=== PATIENT | male | born 1985 ===

== ENCOUNTER 2017-09-18 19:30 | Inpatient (IN) | payer MEDICAID ==
--- NOTE | 2017-09-18 19:58 | ED PDOC ---
HPI:STROKE - Time Time: 19:20 - Historian Historian: Patient - Chief Complaint Chief Complaint: Weakness (right sided) - Onset Date: 09/18/17 Time: 05:00 Onset: This morning - Timing Timing: Currently Symptomatic - Associated Symptoms Associated symptoms:: Headache, Nausea (mild) - Notes: Notes:: Gordy Parker is a 32 year old male, with a past medical history HTN and DVT, who presents to the emergency department complaining of right sided weakness onset at 5:00am today. Patient reports when he woke up at 5am today he had trouble walking and noticed he was weak. He decided not to go to work and stay all day in bed, but the last 2 to 3 hours prior to arrival he began feeling even worst with a headache which prompted ED visit. He did not take any medications for pain or symptoms. Patient has a history of DVT in left leg x2 years ago after knee surgery for an accident, however he stopped taking anticoagulants after x6 months because he was told he didn't have to take them anymore. He denies any other medical complaints. PMD: None provided. NIHSS Stroke Scale - Date/Time Evaluation Performed Date Performed: 09/18/17 Time Performed: 17:50 When Was NIHSS Performed: Baseline - How Severe is the Stroke Level of Consciousness: 0=Alert LOC to Questions: 0=Both comments correct LOC to commands: 0=Obeys both correctly Best Gaze: 0=Normal Visual: 0=No visual loss Facial: 2=Partial (lower face paralysis) Motor Arm - Left: 0=No drift Motor Arm - Right: 1=Drift noted before 10 sec Motor Leg - Left: 0=No drift Motor Leg - Right: 3=No effort against gravity (falls immediately) Limb Ataxia: 0=Absent Sensory: 0=Normal Best Language: 1=Mild to moderate aphasia Dysarthia: 1=Mild to moderate slurring Extinction & Inattention (Neglect): 0=Normal, no object Score: 8 rTPA Inclusion/Exclusion - Refusal of Treatment Patient Refused Treatment: No - Inclusion Criteria for Altepase Patient is 18 years or Older: Yes The Clinical Diagnosis of Ischemic Stroke That is Causing a Potentially Disabling Neurological Deficit: Yes Time of Onset is Well Established to be Less Than 270 Minute Before Treatment Would Begin: No Risk/Benefit Discussed With Patient/Family Member Present: Yes - Exclusion Criteria for Altepase Uncontrolled Hypertension at Time of Treatment (Systolic BP above 185 or Diastolic BP above 110 mmHg): No Past Medical History Reviewed: Historical Data, Nursing Documentation, Vital Signs Vital Signs: Last Vital Signs Temp 98.2 F 09/18/17 19:41 Pulse 63 09/18/17 19:41 Resp 18 09/18/17 19:41 BP 191/116 H 09/18/17 19:41 Pulse Ox 98 09/18/17 19:41 - Medical History PMH: Deep Vein Thrombosis (left leg), HTN - Surgical History Other surgeries: knee surgery after accident - Family History Family History: States: Hypertension - Social History Current smoker - smoking cessation education provided: Yes Alcohol: Occasional Drugs: Denies - Allergies Allergies/Adverse Reactions: Allergies Allergy/AdvReac Type Severity Reaction Status Date / Time No Known Allergies Allergy Verified 09/18/17 19:55 Review of Systems ROS Statement: Except As Marked, All Systems Reviewed And Found Negative Gastrointestinal: Positive for: Nausea (mild). Negative for: Vomiting Neurological: Positive for: Weakness (right sided), Headache Physical Exam - Reviewed Nursing Documentation Reviewed: Yes Vital Signs Reviewed: Yes - Physical Exam Appears: Positive for: Uncomfortable, In Acute Distress Head Exam: Positive for: ATRAUMATIC, NORMOCEPHALIC Skin: Positive for: Warm, Dry Eye Exam: Positive for: EOMI, PERRL ENT: Negative for: Pharyngeal Erythema, Tonsillar Exudate Neck: Positive for: Painless ROM, Supple Cardiovascular/Chest: Positive for: Regular Rate, Rhythm. Negative for: Murmur Respiratory: Positive for: Normal Breath Sounds. Negative for: Wheezing Gastrointestinal/Abdominal: Positive for: Soft. Negative for: Tenderness Back: Positive for: Normal Inspection Extremity: Negative for: Pedal Edema, Deformity Lymphatic: Negative for: Adenopathy Neurologic/Psych: Positive for: Alert, Oriented (x3), Motor/Sensory Deficits ( see NIHSS), Aphasia (mild), Facial Droop (right), Other (Right arm and right leg weakness) - Laboratory Results Result Diagrams: 09/18/17 20:30 09/18/17 20:30 - ECG ECG: Positive for: Interpreted By Co ECG Rhythm: Positive for: Normal QRS, Normal ST Segment, Sinus Bradycardia O2 Sat by Pulse Oximetry: 98 (RA) Pulse Ox Interpretation: Normal - Radiology X-Ray: Interpreted by Me X-Ray Interpretation: No Acute Disease - Progress Re-evaluation Time: 21:00 Condition: Unchanged - Critical Care Total Time (In Min): 30 Documented Critical Care: Time excludes all time spent performint seperately billable procedures Medical Decision Making Medical Decision Making: Initial Impression: Stroke Initial Plan: --Type and screen --CTA Head/Neck Code stroke [CT] --Head w/o (Code Stroke) [CT] --EKG --CMP --Hemoglobin A1C --Lipid Panel --Troponin I --Stroke team consult --CBC w/ differential --PTT --PT --Chest portable [RAD] --Sodium Chloride 1,000 ml IV 100 mls/hr --Reevaluation -On arrival stroke alert activated and orders placed per protocol. Called place to Dr. Campbell neuro director of conservation. If CT negative, to give ASA and plavix and start IV hydration 20:[address] FINDINGS: Brain: No acute brain parenchymal abnormality. No intracranial hemorrhage. No intracranial mass or edema. Ventricles: No hydrocephalus. Bones/joints: No calvarial fracture. Soft tissues: Unremarkable. Sinuses: There is near complete opacification of the left maxillary antrum felt to be due to chronic sinusitis. No fluid in the paranasal sinuses. Mastoid air cells: The visualized mastoid air cells are aerated. IMPRESSION: No acute intracranial abnormality. EXAM: CT Angiography Head With Intravenous Contrast CLINICAL HISTORY: The patient age is 32 years old and is male; Signs and symptoms; Other: Rt side numbness; Additional info: Stroke alert Facility exam id and description: [id number] cta head/neck code stroke TECHNIQUE: Axial computed tomographic angiography images of the head with intravenous contrast using CT angiography protocol. All CT scans at this facility use one or more dose reduction techniques, viz.: automated exposure control; ma/kV adjustment per patient size (including targeted exams where dose is matched to indication; i.e. head); or iterative reconstruction technique. MIP reconstructed images were created and reviewed. Coronal and sagittal reformatted images were created and reviewed. CONTRAST: 90 mL of [id number] administered intravenously. COMPARISON: CT - HEAD W/O (CODE STROKE) 2017-09-18 19:57 FINDINGS: Right internal carotid artery: No acute findings. Intracranial segment is patent with no significant stenosis. No aneurysm. Right anterior cerebral artery: No occlusion or significant stenosis. No aneurysm. Right middle cerebral artery: No occlusion or significant stenosis. No aneurysm. Right posterior cerebral artery: No occlusion or significant stenosis. No aneurysm. Right vertebral artery: The basilar and distal vertebral arteries are small in caliber, without occlusion. Left internal carotid artery: No acute findings. Intracranial segment is patent with no significant stenosis. No aneurysm. Left anterior cerebral artery: No occlusion or significant stenosis. No aneurysm. Left middle cerebral artery: No occlusion or significant stenosis. No aneurysm. Left posterior cerebral artery: No occlusion or significant stenosis. No aneurysm. Left vertebral artery: See above. Basilar artery: See above. IMPRESSION: 1. There is no significant arterial stenosis or occlusion involving the anterior circulation of the brain. 2. The basilar and distal vertebral arteries are small in caliber, without occlusion. EXAM: CT Angiography Neck With Intravenous Contrast EXAM DATE/TIME: 09/18/2017 7:55 PM CLINICAL HISTORY: The patient age is 32 years old and is male; Signs and symptoms; Other: Rt side numbness; Additional info: Stroke alert Facility exam id and description: [email or web address] cta head/neck code stroke TECHNIQUE: Axial computed tomographic angiography images of the neck with intravenous contrast using CT angiography protocol. All CT scans at this facility use one or more dose reduction techniques, viz.: automated exposure control; ma/kV adjustment per patient size (including targeted exams where dose is matched to indication; i.e. head); or iterative reconstruction technique. MIP reconstructed images were created and reviewed. Coronal and sagittal reformatted images were created and reviewed. CONTRAST: 90 mL of [id number] administered intravenously. COMPARISON: CT - HEAD W/O (CODE STROKE) 2017-09-18 19:57 FINDINGS: VASCULATURE: Right common carotid artery: No significant stenosis. No dissection or occlusion. Right internal carotid artery: Extracranial segment is patent with no significant stenosis. No dissection or occlusion. Right external carotid artery: No occlusion. Right vertebral artery: No occlusion or significant stenosis. Left common carotid artery: No significant stenosis. No dissection or occlusion. Left internal carotid artery: Extracranial segment is patent with no significant stenosis. No dissection or occlusion. Left external carotid artery: No occlusion. Left vertebral artery: There is mild dominance of the left vertebral artery. There is no significant stenosis or occlusion of the left vertebral artery. NECK: Bones/joints: There is mild reversal of the lordotic curvature of the cervical spine. Soft tissues: No mass. Sinuses: There is opacification of the left maxillary sinus, with mucosal mucosal thickening of a left ethmoid air cell. Artifact limits evaluation of the left maxillary sinus. Lung apices: Patchy nonspecific groundglass density is visualized within the lungs bilaterally. CAROTID STENOSIS REFERENCE USING NASCET CRITERIA: % ICA stenosis = (1 - narrowest ICA diameter/diameter of distal cervical ICA) x 100. Mild - <50% stenosis. Moderate - 50-69% stenosis. Severe - 70-94% stenosis. Near occlusion - 95-99% stenosis. Occluded - 100% stenosis. IMPRESSION: 1. There is no significant stenosis or occlusion of the extracranial carotid arteries bilaterally. 2. There is mild dominance of the left vertebral artery. 3. Additional CT findings described above. Thank you for allowing us to participate in the care of your patient. Dictated and Authenticated by: Pranay Hernadez MD 09/18/2017 9:16 PM Eastern Time ([place] & [place]) JHONATHAN Campbell findings DW pt and family findings and plan of care Pt needs to be hospitalized for CVA JHONATHAN Bhakta Med Service Scribe Attestation: Documented by Gene Bazan, acting as a scribe for Denise Koo MD Provider Scribe Attestation: All medical record entries made by the Scribe were at my direction and personally dictated by me. I have reviewed the chart and agree that the record accurately reflects my personal performance of the history, physical exam, medical decision making, and the department course for this patient. I have also personally directed, reviewed, and agree with the discharge instructions and disposition. Disposition - Clinical Impression Clinical Impression: Weakness of one side of body - Disposition Disposition Time: 21:00 Condition: GUARDED - Pt Status Changed To: Hospital Disposition Of: Inpatient - Admit Certification Admit to Inpatient:: After my assessment, the patient will require hospitalization for at least two midnights. This is because of the severity of symptoms shown, intensity of services needed, and/or the medical risk in this patient being treated as an outpatient. - POA Present On Arrival: Falls Or Trauma (risk)
[2017-09-18] MEDS ORDERED: Iodixanol 320 MG/ML 100 ML BOTTLE IV ONE (20:05)
[2017-09-18 20:40] LABS: BASO # 0.1 K/uL (0.0-0.2); BASO % 1.1 % (0.0-2.0); EOS # 0.1 K/uL (0.0-0.7); EOS % 1.6 % (0.0-4.0); HEMOGLOBIN 13.4 g/dL (12.0-18.0); LYMPH # 2.4 K/uL (1.0-4.3); LYMPH % 33.3 % (20.0-40.0); MEAN CELL VOLUME 90.2 fl (80.0-94.0); MEAN CORPUSCULAR HEMOGLOBIN 30.7 pg (27.0-31.0); MEAN CORPUSCULAR HGB CONC 34.1 g/dL (33.0-37.0); MEAN PLATELET VOLUME 7.8 fl (7.2-11.7); MONO # 0.6 K/uL (0.0-0.8); MONO % 7.9 % (0.0-10.0); NEUT % 56.1 % (50.0-75.0); NRBC % 0.1 % (0.0-0.0); RBC 4.37 Mil/uL (4.40-5.90); RED CELL DISTRIBUTION WIDTH 13.5 % (11.5-14.5); WHITE BLOOD COUNT 7.1 K/uL (4.8-10.8)
[2017-09-18 20:47] LABS: ALB/GLOB RATIO 1.2 (1.0-2.1); ALBUMIN 3.8 g/dL (3.5-5.0); ALT/SGPT 42 U/L (21-72); AST/SGOT 29 U/L (17-59); BLOOD UREA NITROGEN 14 mg/dl (9-20); CALCIUM 9.2 mg/dL (8.4-10.2); GFR AFRICAN-AMERICAN > 60; GFR NON-AFRICAN AMERICAN > 60; HDL CHOLESTEROL 40 MG/DL (30-70)
[2017-09-18 20:58] LABS: LDL CHOLESTEROL 141 mg/dL (0-129)
[2017-09-18 21:08] LABS: PARTIAL THROMBOPLASTIN TIME 30.1 Seconds (25.6-37.1); PROTHROMBIN TIME 10.9 Seconds (9.8-13.1)
[2017-09-18] MEDS ORDERED: Sodium Chloride 0.9% 1,000 ML IV STA (21:23)
[2017-09-18] MEDS: Sodium Chloride 0.9% 1,000 ML IV SCH (21:53)
[2017-09-19] MEDS ORDERED: Dextrose 5%/0.45% NS 1,000 ML IV SCH (01:30)
[2017-09-19 05:39] LABS: HEMOGLOBIN 13.3 g/dL (12.0-18.0); MEAN CELL VOLUME 90.6 fl (80.0-94.0); MEAN CORPUSCULAR HEMOGLOBIN 30.8 pg (27.0-31.0); RBC 4.32 Mil/uL (4.40-5.90); RED CELL DISTRIBUTION WIDTH 13.2 % (11.5-14.5); WHITE BLOOD COUNT 5.7 K/uL (4.8-10.8)
[2017-09-19 05:50] LABS: BLOOD UREA NITROGEN 12 mg/dl (9-20); CALCIUM 8.7 mg/dL (8.4-10.2); GFR AFRICAN-AMERICAN > 60; GFR NON-AFRICAN AMERICAN > 60; HDL CHOLESTEROL 37 MG/DL (30-70)
[2017-09-19 06:01] LABS: LDL CHOLESTEROL 123 mg/dL (0-129)
[2017-09-19] MEDS: Sodium Chloride 0.9% 1,000 ML IV SCH ×4 (06:43→20:23)
--- NOTE | 2017-09-19 10:08 | MRI ---
PROCEDURE: MRI BRAIN WITHOUT CONTRAST HISTORY: Right-sided weakness. COMPARISON: Comparison made with prior CT scan and CTA of the brain dated 09/18/2017. TECHNIQUE: Multiplanar, multisequence MR images of the brain were obtained without intravenous contrast enhancement. FINDINGS: HEMORRHAGE: No acute parenchymal, subarachnoid or extra-axial hemorrhage. No evidence of hemosiderin deposition identified on gradient echo weighted sequences. DWI: There small acute infarct changes seen in the left basal ganglia extending superiorly along posterior lau radiata. BRAIN PARENCHYMA: No obvious some parenchymal or extra-axial masses or collections. No significant changes of chronic small vessel disease identified. VENTRICLES: No obstructive hydrocephalus. CRANIUM: Unremarkable. ORBITS: Orbits and contents unremarkable. PARANASAL SINUSES/MASTOIDS: Polypoid like mucosal thickening and or mucous retention cyst formation left maxillary antrum again seen. VASCULAR SYSTEM: Visualized major vascular flow voids at skull base patent. OTHER FINDINGS: None. IMPRESSION: There small acute infarct changes seen in the left basal ganglia extending superiorly along the posterior left lau radiata. These findings discussed with Dr. Lang at approximately 9:50 a.m. with written down and read back verification.
--- NOTE | 2017-09-19 10:28 | RAD ---
HISTORY: Code Stroke COMPARISON: No prior. FINDINGS: LUNGS: No active pulmonary disease. PLEURA: No significant pleural effusion identified, no pneumothorax apparent. CARDIOVASCULAR: Normal. OSSEOUS STRUCTURES: No significant abnormalities. VISUALIZED UPPER ABDOMEN: Normal. OTHER FINDINGS: None. IMPRESSION: No active disease.
--- NOTE | 2017-09-19 11:37 | CT ---
PROCEDURE: CT HEAD WITHOUT CONTRAST. HISTORY: Code stroke COMPARISON: None available. TECHNIQUE: Axial computed tomography images were obtained through the head/brain without intravenous contrast. Radiation dose: Total exam DLP = 805.09 mGy-cm. This CT exam was performed using one or more of the following dose reduction techniques: Automated exposure control, adjustment of the mA and/or kV according to patient size, and/or use of iterative reconstruction technique. FINDINGS: HEMORRHAGE: No intracranial hemorrhage. BRAIN: No evidence of large acute infarct however note that the possibility of a small hyperacute infarct cannot be excluded on this study and if there is any concern, recommend followup MRI with diffusion imaging. VENTRICLES: No obstructive hydrocephalus. CALVARIUM: Calvarium intact. PARANASAL SINUSES: Near complete opacification left maxillary antrum with either a large mucous retention cyst or focus of polypoid like mucosal thickening. MASTOID AIR CELLS: Unremarkable as visualized. No inflammatory changes. OTHER FINDINGS: None. IMPRESSION: Evidence of acute intracranial hemorrhage or large acute infarct. Note that the possibility of a small hyperacute infarct cannot be excluded and if there is any concern, recommend followup MRI with diffusion imaging.
--- NOTE | 2017-09-19 14:46 | CT ---
PROCEDURE: CT Angiography of the neck brain dated 09/18/2017 HISTORY: Stroke alert COMPARISON: Correlation made with concurrent MRI brain TECHNIQUE: Contiguous helical/transaxial images of the neck were obtained from the level of the skull-base to the superior mediastinum in the arteriographic phase of enhancement. Coronal and sagittal reformats or also generated. IV contrast dose: 90 cc Visipaque 320 Radiation Dose - DLP: 717.25 mGy-cm This CT exam was performed using one or more of the following dose reduction techniques: Automated exposure control, adjustment of the mA and/or kV according to patient size, and/or use of iterative reconstruction technique. FINDINGS: The visualized aortic arch is widely patent without significant atherosclerotic disease. The left brachiocephalic and left common carotid artery arise from a common trunk. . There is a tiny calcified plaque seen along the anterolateral margin of the proximal left common carotid artery at/ near its origin. The common carotid arteries, carotid bifurcations and internal carotid arteries are widely patent. The distal internal carotid arteries including the PE trace cavernous and supraclinoid segments are also widely patent. Both vertebral arteries are visible throughout left-sided which is larger in caliber/ more dominant than the right- an anatomic variation. The visualized major branches of the [place] including are also widely patent. The distal branches of the anterior middle and posterior cerebral arteries are relatively symmetric. No evidence of large aneurysm nor vascular malformation. Lung apices are clear. There appears to be some minimal biapical pleural thickening. IMPRESSION: Unremarkable MRA of the neck and brain. Note that preliminary read report provided by overnight radiology service.
--- NOTE | 2017-09-19 14:51 | CP.PCM.CON ---
History of Present Illness - History of Present Illness History of Present Illness: 32 yr old male, right handed, who started to have right hand weakness and numbness yesterday morning at 5 am, and presented to the ER at 5 pm. Due to time of onset, he was not a TPA candidate, and was admitted to [facility]. The weakness progressed to his entire arm, and then started to involve his leg. By the end of the day, his face became involved, along with aphasia, and that is when he came to the ER. On inital examination, he was very weak on his right arm and leg with right facial droop but word finding difficulties resolved. CT and CTA head were done and found to be normal, with no stroke or occlusion, given aspirin and plavix. Today, his arm and leg strength is much improved, but he still has facial droop and some very mild aphasia. PMH/PSH: Hypertension, pmh of dvt after left knee surgery. FH/SH: Has 3 brothers and 2 sisters, smokes 2 cigarettes a day, occasional etoh. , has 2 children, works as a operator and truck driver. All: nkda On exam: AAOX3. Pupils 3mm-2mm with light. EOMI. Right sided facial droop, with right orbicularis oculi 4/5 Tongue midline. Right reducing system operator 4+/5, with right sided drift. Left arm is 5/5 ul and bl. sensory: decreased ft, pin right upper limb and lower limb cerebellar: no dysmetria, no ataxia Dtr: +2 ul and ll bl. Toes downgoing. No clonus. Past Patient History - Past Social History Alcohol: Occasional Drugs: Denies - CARDIAC Hx Cardiac Disorders: Yes (HTN) - PULMONARY Hx Respiratory Disorders: No - NEUROLOGICAL Hx Neurological Disorder: No - HEENT Hx HEENT Problems: No - RENAL Hx Chronic Kidney Disease: No - ENDOCRINE/METABOLIC Hx Endocrine Disorders: No - HEMATOLOGICAL/ONCOLOGICAL Hx Blood Disorders: Yes (DVT) - INTEGUMENTARY Hx Dermatological Problems: No - MUSCULOSKELETAL/RHEUMATOLOGICAL Hx Musculoskeletal Disorders: No - GENITOURINARY/GYNECOLOGICAL Hx Genitourinary Disorders: No - PSYCHIATRIC Hx Psychophysiologic Disorder: No Meds Allergies/Adverse Reactions: Allergies Allergy/AdvReac Type Severity Reaction Status Date / Time No Known Allergies Allergy Verified 09/18/17 19:55 - Medications Medications: Current Medications Acetaminophen (Tylenol 325mg Tab) 650 mg PO Q4 PRN PRN Reason: headache Last Admin: 09/19/17 11:26 Dose: 650 mg Aspirin (Aspirin) 325 mg PO DAILY [facility] Last Admin: 09/19/17 09:05 Dose: 325 mg Atorvastatin Calcium (Lipitor) 20 mg PO DAILY [facility] Last Admin: 09/19/17 09:09 Dose: 20 mg Clopidogrel Bisulfate (Plavix) 75 mg PO DAILY [facility] Last Admin: 09/19/17 09:06 Dose: 75 mg Sodium Chloride (Sodium Chloride 0.9%) 1,000 mls @ 100 mls/hr IV .Q10H [facility] Last Admin: 09/19/17 06:43 Dose: Not Given Dextrose/Sodium Chloride (Dextrose 5%/0.45% Ns 1000 Ml) 1,000 mls @ 40 mls/hr IV .Q24H [facility] Stop: 09/20/17 01:29 Last Admin: 09/19/17 02:56 Dose: 40 mls/hr Sodium Chloride (Sodium Chloride 0.9%) 1,000 mls @ 150 mls/hr IV .Q6H40M [facility] Stop: 09/20/17 11:13 Last Admin: 09/19/17 11:15 Dose: 150 mls/hr Results - Vital Signs Recent Vital Signs: Last Vital Signs Temp 97.8 F 09/19/17 08:55 Pulse 58 L 09/19/17 11:27 Resp 14 09/19/17 11:27 BP 142/97 H 09/19/17 11:27 Pulse Ox 100 09/19/17 11:27 - Labs Result Diagrams: 09/19/17 05:37 09/19/17 05:37 Labs: Laboratory Results - last 24 hr 09/18/17 09/18/17 09/18/17 20:07 20:30 20:30 WBC 7.1 RBC 4.37 L Hgb 13.4 Hct 39.4 MCV 90.2 MCH 30.7 MCHC 34.1 RDW 13.5 Plt Count 225 MPV 7.8 Neut % (Auto) 56.1 Lymph % (Auto) 33.3 [place] % (Auto) 7.9 Eos % (Auto) 1.6 Baso % (Auto) 1.1 Neut # (Auto) 4.0 Lymph # (Auto) 2.4 [place] # (Auto) 0.6 Eos # (Auto) 0.1 Baso # (Auto) 0.1 PT INR APTT Sodium 143 Potassium 3.9 Chloride 107 Carbon Dioxide 23 Anion Gap 17 BUN 14 Creatinine 0.7 L Est GFR ( Amer) > 60 Est GFR (Non-Af Amer) > 60 POC Glucose (mg/dL) 109 Random Glucose 95 Calcium 9.2 Total Bilirubin 0.4 AST 29 ALT 42 Alkaline Phosphatase 54 Troponin I < 0.0120 Total Protein 7.0 Albumin 3.8 Globulin 3.2 Albumin/Globulin Ratio 1.2 Triglycerides 126 Cholesterol 203 H LDL Cholesterol Direct 141 H HDL Cholesterol 40 Blood Type Antibody Screen BBK History Checked 09/18/17 09/18/17 09/19/17 20:30 20:30 05:37 WBC RBC Hgb Hct MCV MCH MCHC RDW Plt Count MPV Neut % (Auto) Lymph % (Auto) [place] % (Auto) Eos % (Auto) Baso % (Auto) Neut # (Auto) Lymph # (Auto) [place] # (Auto) Eos # (Auto) Baso # (Auto) PT 10.9 INR 1.0 APTT 30.1 Sodium 141 Potassium 4.2 Chloride 104 Carbon Dioxide 27 Anion Gap 14 BUN 12 Creatinine 0.8 Est GFR ( Amer) > 60 Est GFR (Non-Af Amer) > 60 POC Glucose (mg/dL) Random Glucose 87 Calcium 8.7 Total Bilirubin AST ALT Alkaline Phosphatase Troponin I Total Protein Albumin Globulin Albumin/Globulin Ratio Triglycerides 123 Cholesterol 197 LDL Cholesterol Direct 123 HDL Cholesterol 37 Blood Type O NEGATIVE Antibody Screen Negative BBK History Checked No verified bt 09/19/17 09/19/17 05:37 08:49 WBC 5.7 RBC 4.32 L Hgb 13.3 Hct 39.1 MCV 90.6 MCH 30.8 MCHC 34.0 RDW 13.2 Plt Count 215 MPV Neut % (Auto) Lymph % (Auto) [place] % (Auto) Eos % (Auto) Baso % (Auto) Neut # (Auto) Lymph # (Auto) [place] # (Auto) Eos # (Auto) Baso # (Auto) PT INR APTT Sodium Potassium Chloride Carbon Dioxide Anion Gap BUN Creatinine Est GFR ( Amer) Est GFR (Non-Af Amer) POC Glucose (mg/dL) Random Glucose Calcium Total Bilirubin AST ALT Alkaline Phosphatase Troponin I < 0.0120 Total Protein Albumin Globulin Albumin/Globulin Ratio Triglycerides Cholesterol LDL Cholesterol Direct HDL Cholesterol Blood Type Antibody Screen BBK History Checked - Imaging and Cardiology CT scan - head Status: Image reviewed by me, Report reviewed by me (ct head normal. CTA: normal. MRI/BRain: acute stroke left basal ganglia, extending to left lau radiata. ) Assessment & Plan - Assessment and Plan (Free Text) Assessment: 32 yr old male with acute left MCA stroke that is most likely ischemic/ embolic, with possible underlying coagulopathy,and/or PFO. I will order stroke workup and admit to telemetry. Plan: 1. ECho with bubble study 2. antithrombin 3, factor 5 leiden, prothrombin gene mutation, homocysteine, antiphospholipid antibody, lupus anticoagulant. 3. start aspirin and plavix 4. Left leg ultrasound 5. physical therapy/speech therapy 6. IV fluids normal saline 125 ccs 7. Telemetry Thank you for this interesting consult Dr. Ray Campbell MD DPN
--- NOTE | 2017-09-19 14:52 | US ---
HISTORY: Swelling left leg. PRIORS: No prior. FINDINGS: 2-D, color and duplex Doppler analysis of the lower extremity venous circulation using routine protocol from the femoral veins through the popliteal veins. Venous compressibility: The current study reveals what probably represents chronic DVT within the proximal mid and distal left-sided superficial femoral vein with recanalization. The veins exhibit partial flow and partial compressibility. The visualized popliteal and posterior tibial veins are patent exhibiting normal compressibility augmentation of and augmentation with no evidence of DVT. IMPRESSION: Findings suggest a chronic DVT within the superficial femoral vein with recanalization and partial flow and partial compressibility.
--- NOTE | 2017-09-19 15:44 | HP ---
HISTORY OF PRESENT ILLNESS: Mr. Parker is a 32-year-old male who was admitted via the Emergency Room because of feeling dizzy and weak for several hours prior to admission. He indicated that he felt weak at about 5:00 in the morning when he woke up. He was unable to go to work and then fell asleep again and had trouble walking when he got up. He stayed home in bed for several hours before coming to the Emergency Room because he had some headaches. PAST MEDICAL HISTORY: Hypertension and deep venous thrombosis of the legs, but has not been compliant with his medication for the past 2 years. FAMILY HISTORY: Nonrevealing. SOCIAL HISTORY: He does not drink or smoke and lives at home with his and children. REVIEW OF SYSTEMS: Essentially unremarkable. PHYSICAL EXAMINATION: GENERAL: The patient is alert and oriented, appears to be much more comfortable at present except for some headache, which is frontal. VITAL SIGNS: Blood pressure of 191/116 with the pulse of 98 and respiratory rate of 18. He is afebrile. O2 sat is 100% on room air. SKIN: Shows fair turgor. HEENT: Pupils are equal and reactive to light and accommodation. Mouth shows fair hygiene. NECK: JVP flat. LUNGS: Clear. HEART: Regular. No murmurs or gallops. ABDOMEN: Soft and nontender. No organomegaly. EXTREMITIES: Shows no edema or cyanosis. CENTRAL NERVOUS SYSTEM: The patient is alert and oriented. He is ambulatory. He has no gross deficits noted. DIAGNOSTIC STUDIES: Chest x-ray; no acute cardiopulmonary pathology noted. CT scan of the brain shows no acute brain pathology, but MRI is recommended for followup. MRI of the brain is remarkable for small acute infarct in the left basal ganglia extending superiorly along the posterior left lau radiata. The rest of the labs have been reviewed. IMPRESSION: Acute cerebrovascular accident and uncontrolled hypertension. PLAN: Neurology evaluation. The patient to be given aspirin. Blood pressure to be monitored closely. Physical and occupational therapy. We will continue therapy as ordered. Mckay Bhakta MD
--- NOTE | 2017-09-20 08:23 | CP.PCM.PN ---
Subjective - Date & Time of Evaluation Date of Evaluation: 09/20/17 Time of Evaluation: 08:19 - Subjective Subjective: Mr. Parker was seen and examined at the bedside. He is alert, oriented in all spheres. He states of experiencing very minimal headache with pain scale of 2/10 , located in the frontal non-radiating. He denies any dizziness, lightheadedness , nausea, or vomiting. He further states of feeling much better in comparison from admission. He is tolerating IVF. He is able to follow simple commands with right facial droop, right side weakness, and right arm drift.. Sensation is asymmetrical especially with right side. Ultrasound of the left leg showed a chronic DVT in the left SFV with recanalization and partial flow and partial compressibility. MRI of the brain showed small acute infarct changes seen in the left basal ganglia extending superiorly along the posterior left lau radiata. There was no untoward events overnight. Objective - Vital Signs/Intake and Output Vital Signs (last 24 hours): Temp Pulse Resp BP Pulse Ox 97.9 F 50 L 18 132/84 98 09/20/17 08:00 09/20/17 08:00 09/20/17 08:00 09/20/17 08:00 09/20/17 08:00 - Medications Medications: Current Medications Acetaminophen (Tylenol 325mg Tab) 650 mg PO Q4 PRN PRN Reason: headache Last Admin: 09/19/17 20:20 Dose: 650 mg Aspirin (Aspirin Chewable) 81 mg PO DAILY [facility] Atorvastatin Calcium (Lipitor) 40 mg PO DAILY@2200 [facility] Clopidogrel Bisulfate (Plavix) 75 mg PO DAILY [facility] Last Admin: 09/19/17 09:06 Dose: 75 mg Sodium Chloride (Sodium Chloride 0.9%) 1,000 mls @ 100 mls/hr IV .Q10H [facility] Last Admin: 09/19/17 20:23 Dose: 100 mls/hr Sodium Chloride (Sodium Chloride 0.9%) 1,000 mls @ 150 mls/hr IV .Q6H40M [facility] Stop: 09/20/17 11:13 Last Admin: 09/19/17 11:15 Dose: 150 mls/hr - Labs Labs: 09/19/17 05:37 09/19/17 05:37 PT 10.9 Seconds (9.8-13.1) 09/18/17 20:30 INR 1.0 (0.9-1.2) 09/18/17 20:30 APTT 30.1 Seconds (25.6-37.1) 09/18/17 20:30 - Constitutional Appears: No Acute Distress - Head Exam Head Exam: NORMAL INSPECTION - Eye Exam Eye Exam: PERRL - Neurological Exam Neurological Exam: Alert, Awake, Oriented x3 Neuro motor strength exam: Left Upper Extremity: 5, Right Upper Extremity: 4, Left Lower Extremity: 5, Right Lower Extremity: 4 Additional comments: He has right arm drift, right facial droop, asymmetrical in sensation. Assessment and Plan (1) Ischemic stroke Assessment & Plan: Case discussed with Dr. Campbell, continue all current medical, physical, occupational, and speech therapies. With his LDL elevated, lipitor change from 20 mg PO daily to 40 mg PO daily. Recommend echocardiogram, antithrombin 3, factor 5 leiden, prothrombin gene mutation, homocysteine, antiphospholipid antibody, lupus anticoagulant. Recommend vascular consult to evaluate chronic DVT. Recommend blood pressure control. Status: Acute
--- NOTE | 2017-09-20 10:53 | CP.PCM.PN ---
Subjective - Date & Time of Evaluation Date of Evaluation: 09/20/17 Time of Evaluation: 10:56 - Subjective Subjective: HEADACHES RESOLVED STILL HAS R ARM AND LEG WEAKNESS ALERT AND ORIENTED X 3 Objective - Vital Signs/Intake and Output Vital Signs (last 24 hours): Temp Pulse Resp BP Pulse Ox 97.9 F 50 L 18 132/84 98 09/20/17 08:00 09/20/17 08:00 09/20/17 08:00 09/20/17 08:00 09/20/17 08:00 - Medications Medications: Current Medications Acetaminophen (Tylenol 325mg Tab) 650 mg PO Q4 PRN PRN Reason: headache Last Admin: 09/19/17 20:20 Dose: 650 mg Aspirin (Aspirin Chewable) 81 mg PO DAILY [facility] Last Admin: 09/20/17 10:00 Dose: 81 mg Atorvastatin Calcium (Lipitor) 40 mg PO DAILY@2200 [facility] Clopidogrel Bisulfate (Plavix) 75 mg PO DAILY [facility] Last Admin: 09/20/17 09:57 Dose: 75 mg Sodium Chloride (Sodium Chloride 0.9%) 1,000 mls @ 150 mls/hr IV .Q6H40M [facility] Stop: 09/20/17 11:13 Last Admin: 09/19/17 11:15 Dose: 150 mls/hr - Labs Labs: 09/19/17 05:37 09/19/17 05:37 PT 10.9 Seconds (9.8-13.1) 09/18/17 20:30 INR 1.0 (0.9-1.2) 09/18/17 20:30 APTT 30.1 Seconds (25.6-37.1) 09/18/17 20:30 - Constitutional Appears: No Acute Distress - Head Exam Head Exam: ATRAUMATIC, NORMAL INSPECTION, NORMOCEPHALIC - Eye Exam Eye Exam: EOMI, Normal appearance, PERRL Pupil Exam: NORMAL ACCOMODATION, PERRL - ENT Exam ENT Exam: Mucous Membranes Moist, Normal Exam - Neck Exam Neck Exam: Full ROM, Normal Inspection. absent: Lymphadenopathy - Respiratory Exam Respiratory Exam: Clear to Ausculation Bilateral, NORMAL BREATHING PATTERN - Cardiovascular Exam Cardiovascular Exam: REGULAR RHYTHM, +S1, +S2. absent: Murmur - GI/Abdominal Exam GI & Abdominal Exam: Soft, Normal Bowel Sounds. absent: Tenderness - Rectal Exam Rectal Exam: NORMAL INSPECTION - Extremities Exam Extremities Exam: Full ROM, Normal Capillary Refill, Normal Inspection. absent : Joint Swelling, Pedal Edema Additional comments: WEAKNESS OF R ARM AND LEG - Back Exam Back Exam: NORMAL INSPECTION - Neurological Exam Neurological Exam: Abnormal Gait, Alert, Awake, CN II-XII Intact, Normal Gait, Oriented x3 Neuro motor strength exam: Left Upper Extremity: 4, Right Upper Extremity: 2/1, Left Lower Extremity: 4, Right Lower Extremity: 2/1 - Psychiatric Exam Psychiatric exam: Normal Affect, Normal Mood - Skin Skin Exam: Dry, Intact, Normal Color, Warm Assessment and Plan - Assessment and Plan (Free Text) Assessment: ACUTE CVA HX OF HTN HX OF CHRONIC DVT L LEG Plan: D/C COMPRESSION STOCKINS BECAUSE OF LEG DVT NEUROLOGY WORKUP IN PROGRESS PT/OT EVAL MAY NEED ACUTE REHAB MONITOR BP CLOSELY
[2017-09-20] MEDS: Sodium Chloride 0.9% 1,000 ML IV SCH ×3 (11:38→20:22)
--- NOTE | 2017-09-20 16:50 | CP.PCM.CON ---
History of Present Illness - History of Present Illness History of Present Illness: 32 Y/O WITH ACUTE L BASAL GANGLIA CVA. CONSULTED TO ASSESS BRADYCARDIA. PT HAS SINUS ALFONSO ON TELE. DENIES CP, PALP, LH, DIZZINESS, HX OF THYROID DZ, HX OF SLOW HEART RATE, OR HX OF LYME DISEASE. DENIES CARDIAC FAM HX. DENIES FAM HX OF SCD. PT HAS A HX OF DVT WITH IVC FILTER PLACEMENT 8 YEARS AGO. CURRENTLY CO RUE AND LE WEAKNESS WITH MILD FACIAL WEAKNESS. Review of Systems - Constitutional Constitutional: As Per HPI, Headache. absent: Anorexia, Chills, Daytime Sleepiness, Excessive Sweating, Fatigue, Fever, Frequent Falls, Increased Appetite, Lethargy, Malaise, Night Sweats, Snoring, Sleep Apnea, Weight Gain, Weight Loss, Weakness, Other - EENT Eyes: As Per HPI. absent: Blind Spots, Blurred Vision, Change in Vision, Decreased Night Vision, Diplopia, Discharge, Dry Eye, Exophthalmos, Floaters, Irritation, Itchy Eyes, Loss of Peripheral Vision, Pain, Photophobia, Requires Corrective Lenses, Sees Flashes, Spots in Vision, Tunnel Vision, Other Visual Disturbances, Loss of Vision, Other Ears: As Per HPI. absent: Decreased Hearing, Ear Discharge, Ear Pain, Tinnitus , Abnormal Hearing, Disequilibrium, Dizziness, Other Nose/Mouth/Throat: As Per HPI. absent: Epistaxis, Nasal Congestion, Nasal Discharge, Nasal Obstruction, Nasal Trauma, Nose Pain, Post Nasal Drip, Sinus Pain, Sinus Pressure, Bleeding Gums, Change in Voice, Dental Pain, Dry Mouth, Dysphagia, Halitosis, Hoarsness, Lip Swelling, Mouth Lesions, Mouth Pain, Odynophagia, Sore Throat, Throat Swelling, Tongue Swelling, Facial Pain, Neck Pain, Neck Mass, Other - Cardiovascular Cardiovascular: As Per HPI. absent: Acrocyanosis, Chest Pain, Chest Pain at Rest, Chest Pain with Activity, Claudication, Diaphoresis, Dyspnea, Dyspnea on Exertion, Edema, Irregular Heart Rhythm, Pain Radiating to Arm/Neck/Jaw, Leg Edema, Leg Ulcers, Lightheadedness, Orthopnea, Palpitations, Paroxysmal Nocturnal Dyspnea, Pedal Edema, Radiating Pain, Rapid Heart Rate, Slow Heart Rate, Syncope, Other - Respiratory Respiratory: As Per HPI. absent: Cough, Dyspnea, Hemoptysis, Dyspnea on Exertion, Wheezing, Snoring, Stridor, Pain on Inspiration, Chest Congestion, Excessive Mucous Production, Change in Mucous Color, Pain with Coughing, Other - Gastrointestinal Gastrointestinal: As Per HPI. absent: Abdominal Pain, Belching, Bloating, Change in Bowel Habits, Change in Stool Character, Coffee Ground Emesis, Constipation, Cramping, Diarrhea, Dyspepsia, Dysphagia, Early Satiety, Excessive Flatus, Fecal Incontinence, Heartburn, Hematemesis, Hematochezia, Loose Stools, Melena, Nausea, Odynophagia, Temesmus, Vomiting, Other - Genitourinary Genitourinary: As Per HPI. absent: Change in Urinary Stream, Difficulty Urinating, Dysuria, Flank Pain, Hematuria, Pyuria, Nocturia, Urinary Incontinence, Urinary Frequency, Urinary Hesitance, Urinary Urgency, Voiding Freq/Small Amts, Freq UTI, Hx Renal/Bladder Calculi, Hx /Renal Surgery, Bladder Distension, Other - Musculoskeletal Musculoskeletal: As Per HPI. absent: Abnormal Gait, Arthralgias, Atrophy, Back Pain, Deformity, Joint Swelling, Limited Range of Motion, Loss of Height, Muscle Cramps, Muscle Weakness, Myalgias, Neck Pain, Numbness, Radiating Pain into Limb, Stiffness, Tingling, Other - Integumentary Integumentary: As Per HPI. absent: Acne, Alopecia, Bleeding Lesions, Change in Hair, Change in Nails, Change in Pigmentation, Changing Lesions, Dry Skin, Erythema, Furuncle, Hirsutism, Lesions, New Lesions, Non-Healing Lesions, Photosensitivity, Pruritus, Rash, Skin Pain, Skin Ulcer, Sores, Striae, Swelling , Unusual Bruising, Wounds, Jaundice, Other - Neurological Neurological: As Per HPI, Abnormal Gait, Focal Weakness. absent: Abnormal Hearing, Abnormal Movements, Abnormal Speech, Behavioral Changes, Burning Sensations, Confusion, Convulsions, Disequilibrium, Dizziness, Numbness, Frequent Falls, Headaches, Lack of Coordination, Loss of Vision, Memory Loss, Paresthesias, Radicular Pain, Restless Legs, Sensory Deficit, Syncope, Tingling , Tremor, Vertigo, Weakness, Other Visual Disturbances, Other - Psychiatric Psychiatric: As Per HPI. absent: Abnormal Sleep Pattern, Anhedonia, Anxiety, Auditory Hallucinations, Behavioral Changes, Change in Appetite, Change in Libido, Confusion, Depression, Difficulty Concentrating, Hallucinations, Homicidal Ideation, Hopelessness, Irritability, Memory Loss, Mood Swings, Panic Attacks, Paranoia, Suicidal Ideation, Visual Hallucinations, Tactile Hallucinations, Other - Endocrine Endocrine: As Per HPI. absent: Change in Body Appearance, Change in Libido, Cold Intolorance, Deepening of Voice, Excessive Sweating, Fatigue, Flushing, Heat Intolorance, Increase in Ring/Shoe/Hat Size, Palpitations, Polydipsia, Polyphagia, Polyuria, Other - Hematologic/Lymphatic Hematologic: As Per HPI. absent: Easy Bleeding, Easy Bruising, Lymphadenopathy , Other Past Patient History - Past Social History Smoking Status: Light Smoker < 10 Cigarettes Daily Chewing Tobacco Use: No Cigar Use: No Alcohol: Occasional Domestic Violence: Negative - CARDIAC Hx Cardiac Disorders: Yes (HTN) - PULMONARY Hx Respiratory Disorders: No - NEUROLOGICAL Hx Neurological Disorder: No - HEENT Hx HEENT Problems: No - RENAL Hx Chronic Kidney Disease: No - ENDOCRINE/METABOLIC Hx Endocrine Disorders: No - HEMATOLOGICAL/ONCOLOGICAL Hx AIDS: No Hx Human Immunodeficiency Virus (HIV): No - INTEGUMENTARY Hx Dermatological Problems: No - MUSCULOSKELETAL/RHEUMATOLOGICAL Hx Falls: No - GENITOURINARY/GYNECOLOGICAL Hx Genitourinary Disorders: No - PSYCHIATRIC Hx Substance Use: No Meds Allergies/Adverse Reactions: Allergies Allergy/AdvReac Type Severity Reaction Status Date / Time No Known Allergies Allergy Verified 09/18/17 19:55 - Medications Medications: Current Medications Acetaminophen (Tylenol 325mg Tab) 650 mg PO Q4 PRN PRN Reason: headache Last Admin: 09/19/17 20:20 Dose: 650 mg Aspirin (Aspirin Chewable) 81 mg PO DAILY [facility] Last Admin: 09/20/17 10:00 Dose: 81 mg Atorvastatin Calcium (Lipitor) 40 mg PO DAILY@2200 [facility] Clopidogrel Bisulfate (Plavix) 75 mg PO DAILY [facility] Last Admin: 09/20/17 09:57 Dose: 75 mg Physical Exam - Constitutional Appears: Well - Head Exam Head Exam: ATRAUMATIC, NORMAL INSPECTION, NORMOCEPHALIC - Eye Exam Eye Exam: EOMI, Normal appearance, PERRL. absent: Conjunctival injection, Nystagmus, Periorbital swelling, Periorbital tenderness, Scleral icterus Pupil Exam: NORMAL ACCOMODATION, PERRL. absent: Fixed, Irregular, Miosis, Mydriatic, Unequal - ENT Exam ENT Exam: Mucous Membranes Moist, Normal Exam. absent: Mucous Membranes Dry, Normal External Ear Exam, Normal Oropharynx, TM's Normal Bilaterally - Neck Exam Neck exam: Positive for: Normal Inspection. Negative for: Full Rom, Lymphadenopathy, Meningismus, Tenderness, Thyromegaly - Respiratory Exam Respiratory Exam: Clear to Auscultation Bilateral, NORMAL BREATHING PATTERN. absent: Accessory Muscle Use, Chest Wall Tenderness, Decreased Breath Sounds, Prolonged Expiratory Phase, Rales, Rhonchi, Wheezes, Respiratory Distress, Stridor - Cardiovascular Exam Cardiovascular Exam: Bradycardia, REGULAR RHYTHM, +S1, +S2. absent: Tachycardia , Clicks, Diastolic murmur, Gallop, Irregular Rhythm, JVD, RRR, Rubs, +S4, Systolic Murmur - GI/Abdominal Exam GI & Abdominal Exam: Normal Bowel Sounds, Soft. absent: Bruit, Diminished Bowel Sounds, Distended, Firm, Guarding, Hernia, Hyperactive Bowel Sounds, Hypoactive Bowel Sounds, Mass, Organomegaly, Pulsatile Mass, Rebound, Rigid, Tenderness - Extremities Exam Extremities exam: Positive for: normal inspection, pedal pulses present. Negative for: calf tenderness, full ROM, joint swelling, normal capillary refill , pedal edema, tenderness - Back Exam Back exam: NORMAL INSPECTION. absent: CVA tenderness (L), CVA tenderness (R), FULL ROM, muscle spasm, paraspinal tenderness, rash noted, tenderness, vertebral tenderness - Neurological Exam Neurological exam: Alert, CN II-XII Intact, Motor Sensory Deficit, Normal Gait, Oriented x3, Reflexes Normal Additional comments: 3-4/5 LEFT UPPER AND LOWER EXT STRENGTH - Psychiatric Exam Psychiatric exam: Normal Affect, Normal Mood - Skin Skin Exam: Dry, Intact, Normal Color, Warm Results - Vital Signs Recent Vital Signs: Last Vital Signs Temp 97.7 F 09/20/17 16:43 Pulse 49 L 09/20/17 16:43 Resp 20 09/20/17 16:43 BP 160/97 H 09/20/17 16:43 Pulse Ox 98 09/20/17 16:43 - Labs Result Diagrams: 09/21/17 04:15 09/21/17 04:15 Labs: Laboratory Results - last 24 hr 09/18/17 09/19/17 09/19/17 20:30 16:38 18:29 POC Glucose (mg/dL) Hemoglobin A1c 5.7 Troponin I < 0.0120 Blood Type Confirm O NEGATIVE 09/20/17 09/20/17 05:16 10:59 POC Glucose (mg/dL) 76 101 Hemoglobin A1c Troponin I Blood Type Confirm - EKG Data EKG Interpreted by: Myself EKG shows normal: Sinus rhythm Rate: Bradycardia Assessment & Plan (1) Sinus bradycardia Status: Acute Comment: CHECK TSH, TFTS, MONITOR ON TELE, REPLEAT LYTES. ECHO IN AM WITH BUBBLE STUDY TO EVAL FOR ASD (2) Hx of deep venous thrombosis Status: Acute Comment: HYPERCOAG W/U ORDERED (3) Hx of superior vena cava filter placement Status: Acute (4) Elevated BP without diagnosis of hypertension Status: Acute Comment: AVOID DROPPING BP QUICKLY (5) Ischemic stroke Status: Acute - Assessment and Plan (Free Text) Plan: MY CONCERN IS THE PT HAD A THROMBOSIS ON IVCF WHICH CROSSED PFO OR ASD THEN EMBOLIZING TO BRAIN. WILL NEED ECHO W SALINE CONTRAST. WILL W/U BRADYCARDIA , HOWEVER MOST LIKELY DUE TO ACUTE CVA. ESR AND CRP FOR VASCULOPATHY
[2017-09-20 21:25] LABS: BARBITURATES, UR NEGATIVE (NEGATIVE); BENZODIAZEPINES, UR NEGATIVE (NEGATIVE); OPIATES, UR NEGATIVE (NEGATIVE); PHENCYCLIDINE, UR NEGATIVE (NEGATIVE)
[2017-09-20] MEDS: Enoxaparin 40 mg Syringe SC SCH (22:19)
[2017-09-21] MEDS: Sodium Chloride 0.9% 1,000 ML IV SCH ×3 (04:50→17:48)
[2017-09-21 05:29] LABS: HEMOGLOBIN 13.7 g/dL (12.0-18.0); MEAN CELL VOLUME 90.2 fl (80.0-94.0); MEAN CORPUSCULAR HEMOGLOBIN 30.8 pg (27.0-31.0); MEAN CORPUSCULAR HGB CONC 34.2 g/dL (33.0-37.0); RBC 4.44 Mil/uL (4.40-5.90); RED CELL DISTRIBUTION WIDTH 13.5 % (11.5-14.5)
[2017-09-21 06:04] LABS: T3 1.01 nmol/L (1.49-2.60)
[2017-09-21 06:21] LABS: BLOOD UREA NITROGEN 16 mg/dl (9-20); GFR AFRICAN-AMERICAN > 60; GFR NON-AFRICAN AMERICAN > 60
[2017-09-21 06:22] LABS: ALB/GLOB RATIO 1.2 (1.0-2.1); ALBUMIN 3.7 g/dL (3.5-5.0); ALT/SGPT 40 U/L (21-72); AST/SGOT 30 U/L (17-59)
[2017-09-21] MEDS: Enoxaparin 40 mg Syringe SC SCH (08:08)
--- NOTE | 2017-09-21 09:09 | CP.PCM.PN ---
Subjective - Date & Time of Evaluation Date of Evaluation: 09/21/17 Time of Evaluation: 09:09 - Subjective Subjective: WEAKNESS OF R ARM AND LEG PERSIST HEADACHES RESOLVED Objective - Vital Signs/Intake and Output Vital Signs (last 24 hours): Temp Pulse Resp BP Pulse Ox 97.4 F L 50 L 18 148/91 H 98 09/21/17 08:30 09/21/17 08:30 09/21/17 08:30 09/21/17 08:30 09/21/17 08:30 - Medications Medications: Current Medications Acetaminophen (Tylenol 325mg Tab) 650 mg PO Q4 PRN PRN Reason: headache Last Admin: 09/20/17 19:55 Dose: 650 mg Aspirin (Aspirin Chewable) 81 mg PO DAILY [facility] Last Admin: 09/21/17 08:08 Dose: 81 mg Atorvastatin Calcium (Lipitor) 40 mg PO DAILY@2200 [facility] Last Admin: 09/20/17 22:18 Dose: 40 mg Clopidogrel Bisulfate (Plavix) 75 mg PO DAILY [facility] Last Admin: 09/21/17 08:08 Dose: 75 mg Enoxaparin Sodium (Lovenox) 40 mg SC DAILY [facility] PRN Reason: Protocol Last Admin: 09/21/17 08:08 Dose: 40 mg Sodium Chloride (Sodium Chloride 0.9%) 1,000 mls @ 150 mls/hr IV .Q6H40M [facility] Stop: 09/21/17 20:07 Last Admin: 09/21/17 04:50 Dose: 150 mls/hr - Labs Labs: 09/21/17 04:15 09/21/17 04:15 PT 10.9 Seconds (9.8-13.1) 09/18/17 20:30 INR 1.0 (0.9-1.2) 09/18/17 20:30 APTT 30.1 Seconds (25.6-37.1) 09/18/17 20:30 - Constitutional Appears: No Acute Distress - Head Exam Head Exam: ATRAUMATIC, NORMAL INSPECTION, NORMOCEPHALIC - Eye Exam Eye Exam: EOMI, Normal appearance, PERRL Pupil Exam: NORMAL ACCOMODATION, PERRL - ENT Exam ENT Exam: Mucous Membranes Moist, Normal Exam - Neck Exam Neck Exam: Full ROM, Normal Inspection. absent: Lymphadenopathy - Respiratory Exam Respiratory Exam: Clear to Ausculation Bilateral, NORMAL BREATHING PATTERN - Cardiovascular Exam Cardiovascular Exam: REGULAR RHYTHM, +S1, +S2. absent: Murmur - GI/Abdominal Exam GI & Abdominal Exam: Soft, Normal Bowel Sounds. absent: Tenderness - Rectal Exam Rectal Exam: NORMAL INSPECTION - Extremities Exam Extremities Exam: Full ROM, Normal Capillary Refill, Normal Inspection. absent : Joint Swelling, Pedal Edema - Back Exam Back Exam: NORMAL INSPECTION - Neurological Exam Neurological Exam: Alert, Awake, CN II-XII Intact, Normal Gait, Oriented x3 Neuro motor strength exam: Left Upper Extremity: 4, Right Upper Extremity: 3, Left Lower Extremity: 4, Right Lower Extremity: 3 - Psychiatric Exam Psychiatric exam: Normal Affect, Normal Mood - Skin Skin Exam: Dry, Intact, Normal Color, Warm Assessment and Plan - Assessment and Plan (Free Text) Assessment: NEW CVA HTN BRADYCARDIA DUE TO CVA Plan: NEURO AND PT EVAL MAY NEED ACUTE REHAB
--- NOTE | 2017-09-21 13:43 | CARD ---
APPROVED REPORT EKG Measurement Heart [id number] <Conclusion> Sinus bradycardia with sinus arrhythmia Otherwise normal ECG
--- NOTE | 2017-09-21 16:26 | CP.PCM.PN ---
Subjective - Date & Time of Evaluation Date of Evaluation: 09/21/17 Time of Evaluation: 16:23 - Subjective Subjective: WEAKNESS MINIMALLY IMPROVED. NO lh OR PALP. ALFONSO ON TELE Objective - Vital Signs/Intake and Output Vital Signs (last 24 hours): Temp Pulse Resp BP Pulse Ox 98.1 F 53 L 20 98/65 L 98 09/21/17 12:31 09/21/17 12:31 09/21/17 12:31 09/21/17 12:31 09/21/17 12:31 - Medications Medications: Current Medications Acetaminophen (Tylenol 325mg Tab) 650 mg PO Q4 PRN PRN Reason: headache Last Admin: 09/21/17 10:19 Dose: 650 mg Aspirin (Aspirin Chewable) 81 mg PO DAILY [facility] Last Admin: 09/21/17 08:08 Dose: 81 mg Atorvastatin Calcium (Lipitor) 40 mg PO DAILY@2200 [facility] Last Admin: 09/20/17 22:18 Dose: 40 mg Clopidogrel Bisulfate (Plavix) 75 mg PO DAILY [facility] Last Admin: 09/21/17 08:08 Dose: 75 mg Enoxaparin Sodium (Lovenox) 40 mg SC DAILY [facility] PRN Reason: Protocol Last Admin: 09/21/17 08:08 Dose: 40 mg Sodium Chloride (Sodium Chloride 0.9%) 1,000 mls @ 150 mls/hr IV .[id number] [facility] Stop: 09/21/17 20:07 Last Admin: 09/21/17 10:20 Dose: 150 mls/hr - Labs Labs: 09/21/17 04:15 09/21/17 04:15 PT 10.9 Seconds (9.8-13.1) 09/18/17 20:30 INR 1.0 (0.9-1.2) 09/18/17 20:30 APTT 30.1 Seconds (25.6-37.1) 09/18/17 20:30 - Constitutional Appears: Well - Head Exam Head Exam: ATRAUMATIC, NORMAL INSPECTION, NORMOCEPHALIC - Eye Exam Eye Exam: EOMI, Normal appearance, PERRL. absent: Conjunctival injection, Nystagmus, Periorbital swelling, Periorbital tenderness, Scleral icterus Pupil Exam: NORMAL ACCOMODATION, PERRL - ENT Exam ENT Exam: Mucous Membranes Moist, Normal Exam. absent: Mucous Membranes Dry, Normal External Ear Exam, Normal Oropharynx, TM's Normal Bilaterally - Neck Exam Neck Exam: Full ROM, Normal Inspection. absent: Lymphadenopathy, Meningismus, Tenderness, Thyromegaly - Respiratory Exam Respiratory Exam: Clear to Ausculation Bilateral, NORMAL BREATHING PATTERN. absent: Accessory Muscle Use, Chest Wall Tenderness, Decreased Breath Sounds, Prolonged Expiratory Phase, Rales, Rhonchi, Wheezes, Respiratory Distress, Stridor - Cardiovascular Exam Cardiovascular Exam: Bradycardia, REGULAR RHYTHM, +S1, +S2. absent: Tachycardia , Clicks, Diastolic murmur, Gallop, Irregular Rhythm, JVD, RRR, Rubs, +S4, Murmur - GI/Abdominal Exam GI & Abdominal Exam: Soft, Normal Bowel Sounds - Rectal Exam Rectal Exam: Deferred - Extremities Exam Extremities Exam: Full ROM, Normal Capillary Refill. absent: Calf Tenderness, Joint Swelling, Pedal Edema, Tenderness Additional comments: LUE AND LLE STRENGTH IS 4/5 - Back Exam Back Exam: NORMAL INSPECTION. absent: CVA tenderness (L), CVA tenderness (R), Full ROM, muscle spasm, paraspinal tenderness, rash noted, tenderness, vertebral tenderness - Neurological Exam Neurological Exam: Alert, Awake, CN II-XII Intact, Motor Sensory Deficit, Oriented x3. absent: Abnormal Gait, Altered, Normal Gait, Reflexes Normal Neuro motor strength exam: Left Upper Extremity: 4, Right Upper Extremity: 5, Left Lower Extremity: 4, Right Lower Extremity: 5 - Psychiatric Exam Psychiatric exam: Normal Affect, Normal Mood. absent: Agitated, Anxious, Depressed, Flat Affect, Homicidal Ideation, Manic, Suicidal Ideation - Skin Skin Exam: Dry, Intact, Normal Color, Warm. absent: Abrasion, Cyanosis, Diaphoretic, Erythema, Mottled, Pallor, Pallor, Petechiae, Rash, Urticaria, Vesicles Assessment and Plan (1) Sinus bradycardia Status: Acute (2) Hx of deep venous thrombosis Status: Acute (3) Hx of superior vena cava filter placement Status: Acute (4) Elevated BP without diagnosis of hypertension Status: Acute (5) Ischemic stroke Status: Acute - Assessment and Plan (Free Text) Plan: PTS HR IS RESPONSIVE TO MOVEMENT AND NO DIZZINESS. WOULD MONITOR. NO INTERVENTION NEEDED. BP WAS LOW TODAY. HE WAS STARTED ON NS. ESR, CRP AND TROP NEGATIVE. ECHO IMAGES REVIEWED - SALINE CONTRAST STUDY IS INDETERMINATE FOR PFO OR ASD. WILL ASK ECHO TO REPEAT LIMITED STUDY.
--- NOTE | 2017-09-22 08:42 | CP.PCM.PN ---
Subjective - Date & Time of Evaluation Date of Evaluation: 09/22/17 Time of Evaluation: 08:42 - Subjective Subjective: SLIGHT IMPROVEMENT OF R ARM AND LEG WEAKNESS AMBULATING WITHOUT ASSISTANCE BUT GAIT IS STILL UNSTEADY HEADACHES RESOLVED BP STABLE Objective - Vital Signs/Intake and Output Vital Signs (last 24 hours): Temp Pulse Resp BP Pulse Ox 97.6 F 50 L 18 111/64 99 09/22/17 05:00 09/22/17 05:00 09/22/17 05:00 09/22/17 05:00 09/22/17 05:00 - Medications Medications: Current Medications Acetaminophen (Tylenol 325mg Tab) 650 mg PO Q4 PRN PRN Reason: headache Last Admin: 09/22/17 01:13 Dose: 650 mg Aspirin (Aspirin Chewable) 81 mg PO DAILY [facility] Last Admin: 09/21/17 08:08 Dose: 81 mg Atorvastatin Calcium (Lipitor) 40 mg PO DAILY@2200 [facility] Last Admin: 09/21/17 21:18 Dose: 40 mg Clopidogrel Bisulfate (Plavix) 75 mg PO DAILY [facility] Last Admin: 09/21/17 08:08 Dose: 75 mg Enoxaparin Sodium (Lovenox) 40 mg SC DAILY [facility] PRN Reason: Protocol Last Admin: 09/21/17 08:08 Dose: 40 mg - Labs Labs: 09/21/17 04:15 09/21/17 04:15 PT 10.9 Seconds (9.8-13.1) 09/18/17 20:30 INR 1.0 (0.9-1.2) 09/18/17 20:30 APTT 30.1 Seconds (25.6-37.1) 09/18/17 20:30 - Constitutional Appears: No Acute Distress - Head Exam Head Exam: ATRAUMATIC, NORMAL INSPECTION, NORMOCEPHALIC - Eye Exam Eye Exam: EOMI, Normal appearance, PERRL Pupil Exam: NORMAL ACCOMODATION, PERRL - ENT Exam ENT Exam: Mucous Membranes Moist, Normal Exam - Neck Exam Neck Exam: Full ROM, Normal Inspection. absent: Lymphadenopathy - Respiratory Exam Respiratory Exam: Clear to Ausculation Bilateral, NORMAL BREATHING PATTERN - Cardiovascular Exam Cardiovascular Exam: REGULAR RHYTHM, +S1, +S2. absent: Murmur - GI/Abdominal Exam GI & Abdominal Exam: Soft, Normal Bowel Sounds. absent: Tenderness - Rectal Exam Rectal Exam: NORMAL INSPECTION - Extremities Exam Extremities Exam: Full ROM, Normal Capillary Refill, Normal Inspection. absent : Joint Swelling, Pedal Edema - Back Exam Back Exam: NORMAL INSPECTION - Neurological Exam Neurological Exam: Abnormal Gait, Alert, Awake, CN II-XII Intact, Oriented x3 Neuro motor strength exam: Left Upper Extremity: 4, Right Upper Extremity: 3, Left Lower Extremity: 4, Right Lower Extremity: 3 - Psychiatric Exam Psychiatric exam: Normal Affect, Normal Mood - Skin Skin Exam: Dry, Intact, Normal Color, Warm Assessment and Plan - Assessment and Plan (Free Text) Assessment: ACUTE CVA HX OF HTN-CONTROLLED BRADYCARDIA DUE TO CVA Plan: MEETING PLANNER FOR REFERRAL TO ACUTE REHAB
[2017-09-22] MEDS ORDERED: Sodium Chloride 0.9% 1,000 ML IV SCH (08:45)
--- NOTE | 2017-09-22 08:48 | CARD ---
APPROVED REPORT EXAM: Two-dimensional and M-mode echocardiogram with Doppler and color Doppler. Other Information Quality : GoodRhythm : NSR INDICATION CVA/TIA Echo Enhancing Agent Indication: Rule Out Septal Defect Agent/Amount Used: Agitated Saline 2D DIMENSIONS IVSd1.54 (0.7-1.1cm)LVDd4.29 (3.9-5.9cm) LVOT Diameter2.26 (1.8-2.4cm)PWd1.21 (0.7-1.1cm) IVSs1.35 (0.8-1.2cm)LVDs2.88 (2.5-4.0cm) FS (%) 33.0 %PWs1.41 (0.8-1.2cm) M-Mode DIMENSIONS Left Atrium (MM)3.76 (2.5-4.0cm)IVSd1.26 (0.7-1.1cm) Aortic Root3.82 (2.2-3.7cm)LVDd5.38 (4.0-5.6cm) Aortic Cusp Exc.2.41 (1.5-2.0cm)PWd1.32 (0.7-1.1cm) IVSs2.18 cmFS (%) 55 % LVDs2.44 (2.0-3.8cm)PWs1.97 cm Mitral Valve MV E Nqncjqcl95.6cm/sMV DECEL [id number] A Dqyuarrc32.0cm/s MV [id number]/A ratio1.3MVA (PHT)2.05cm2 TDI Lateral E' Peak V13.77cm/sMedial E' Peak V11.08cm/sE/Lateral E'4.4 E/Medial E'5.5 Pulmonary Valve PV Peak Edkysuhx500.0cm/s LEFT VENTRICLE The left ventricle is normal size. There is normal left ventricular wall thickness. Left ventricle systolic function is normal. The Ejection Fraction is 60-65%. There is normal LV segmental wall motion. The left ventricular diastolic function is normal. RIGHT VENTRICLE The right ventricle is normal size. There is normal right ventricular wall thickness. The right ventricular systolic function is normal. ATRIA The left atrium size is normal. The right atrium size is normal. Bubble study did not reveal any interatrial communication AORTIC VALVE The aortic valve is normal in structure. No aortic regurgitation is present. There is no aortic valvular stenosis. MITRAL VALVE The mitral valve is normal in structure. There is no evidence of mitral valve prolapse. There is no mitral valve stenosis. There is no mitral valve regurgitation noted. TRICUSPID VALVE The tricuspid valve is normal in structure. There is no tricuspid valve regurgitation noted. PULMONIC VALVE The pulmonary valve is normal in structure. There is no pulmonic valvular regurgitation. GREAT VESSELS The aortic root is normal in size. Due to poor image quality, the IVC could not be assessed. PERICARDIAL EFFUSION The pericardium appears normal. <Conclusion> The left ventricle is normal size. There is normal left ventricular wall thickness. There is normal LV segmental wall motion. Left ventricle systolic function is normal. The Ejection Fraction is 60-65%. The left ventricular diastolic function is normal. Bubble study did not reveal any interatrial communication
[2017-09-22] MEDS: Enoxaparin 40 mg Syringe SC SCH (09:39)
[2017-09-22 16:56] LABS: LYME IGG NEGATIVE (NEGATIVE)
[2017-09-22 17:04] LABS: LYME IGM NEGATIVE (NEGATIVE)
[2017-09-23] MEDS: Enoxaparin 40 mg Syringe SC SCH (08:48)
--- NOTE | 2017-09-23 09:32 | CP.PCM.PN ---
Subjective - Date & Time of Evaluation Date of Evaluation: 09/23/17 Time of Evaluation: 09:35 - Subjective Subjective: R ARM AND LEG WEAKNESS IMPROVING ALERT AND ORIENTED X 3 SPEECH INTACT Objective - Vital Signs/Intake and Output Vital Signs (last 24 hours): Temp Pulse Resp BP Pulse Ox 97.7 F 56 L 20 121/75 97 09/23/17 08:00 09/23/17 08:00 09/23/17 08:00 09/23/17 08:00 09/23/17 08:00 Intake and Output: 09/23/17 09/23/17 06:59 18:59 Intake Total 1700 Balance 1700 - Medications Medications: Current Medications Acetaminophen (Tylenol 325mg Tab) 650 mg PO Q4 PRN PRN Reason: headache Last Admin: 09/22/17 22:54 Dose: 650 mg Aspirin (Aspirin Chewable) 81 mg PO DAILY [facility] Last Admin: 09/22/17 09:39 Dose: 81 mg Atorvastatin Calcium (Lipitor) 40 mg PO DAILY@2200 [facility] Last Admin: 09/22/17 21:22 Dose: 40 mg Clopidogrel Bisulfate (Plavix) 75 mg PO DAILY [facility] Last Admin: 09/22/17 09:39 Dose: 75 mg Enoxaparin Sodium (Lovenox) 40 mg SC DAILY [facility] PRN Reason: Protocol Last Admin: 09/23/17 08:48 Dose: Not Given - Labs Labs: 09/21/17 04:15 09/21/17 04:15 PT 10.9 Seconds (9.8-13.1) 09/18/17 20:30 INR 1.0 (0.9-1.2) 09/18/17 20:30 APTT 30.1 Seconds (25.6-37.1) 09/18/17 20:30 - Constitutional Appears: No Acute Distress - Head Exam Head Exam: ATRAUMATIC, NORMAL INSPECTION, NORMOCEPHALIC - Eye Exam Eye Exam: EOMI, Normal appearance, PERRL Pupil Exam: NORMAL ACCOMODATION, PERRL - ENT Exam ENT Exam: Mucous Membranes Moist, Normal Exam - Neck Exam Neck Exam: Full ROM, Normal Inspection. absent: Lymphadenopathy - Respiratory Exam Respiratory Exam: Clear to Ausculation Bilateral, NORMAL BREATHING PATTERN - Cardiovascular Exam Cardiovascular Exam: REGULAR RHYTHM, +S1, +S2. absent: Murmur - GI/Abdominal Exam GI & Abdominal Exam: Soft, Normal Bowel Sounds. absent: Tenderness - Rectal Exam Rectal Exam: NORMAL INSPECTION - Extremities Exam Extremities Exam: Full ROM, Normal Capillary Refill, Normal Inspection. absent : Joint Swelling, Pedal Edema - Back Exam Back Exam: NORMAL INSPECTION - Neurological Exam Neurological Exam: Abnormal Gait, Alert, Awake, CN II-XII Intact, Oriented x3 Neuro motor strength exam: Left Upper Extremity: 5, Right Upper Extremity: 3, Left Lower Extremity: 5, Right Lower Extremity: 3 - Psychiatric Exam Psychiatric exam: Normal Affect, Normal Mood - Skin Skin Exam: Dry, Intact, Normal Color, Warm Assessment and Plan - Assessment and Plan (Free Text) Assessment: ACUTE CVA R/O STRUCTURAL CARDIAC DZ HTN-CONTROLLED Plan: FOR JIGAR TODAY TO R/O CARDIAC PATHOLOGY WILL NEED ACUTE REHAB
--- NOTE | 2017-09-23 17:44 | CP.PCM.PN ---
Subjective - Date & Time of Evaluation Date of Evaluation: 09/23/17 Time of Evaluation: 17:42 - Subjective Subjective: pt slowly improving. had hayden with bubble study this am. no asd or pfo. Objective - Vital Signs/Intake and Output Vital Signs (last 24 hours): Temp Pulse Resp BP Pulse Ox 98.3 F 54 L 16 118/75 98 09/23/17 16:05 09/23/17 16:05 09/23/17 16:05 09/23/17 16:05 09/23/17 16:05 Intake and Output: 09/23/17 09/23/17 06:59 18:59 Intake Total 1700 Balance 1700 - Medications Medications: Current Medications Acetaminophen (Tylenol 325mg Tab) 650 mg PO Q4 PRN PRN Reason: headache Last Admin: 09/22/17 22:54 Dose: 650 mg Aspirin (Aspirin Chewable) 81 mg PO DAILY [facility] Last Admin: 09/23/17 14:18 Dose: 81 mg Atorvastatin Calcium (Lipitor) 40 mg PO DAILY@2200 [facility] Last Admin: 09/22/17 21:22 Dose: 40 mg Clopidogrel Bisulfate (Plavix) 75 mg PO DAILY [facility] Last Admin: 09/23/17 14:18 Dose: 75 mg Enoxaparin Sodium (Lovenox) 40 mg SC DAILY [facility] PRN Reason: Protocol Last Admin: 09/23/17 08:48 Dose: Not Given - Labs Labs: 09/21/17 04:15 09/21/17 04:15 PT 10.9 Seconds (9.8-13.1) 09/18/17 20:30 INR 1.0 (0.9-1.2) 09/18/17 20:30 APTT 30.1 Seconds (25.6-37.1) 09/18/17 20:30 - Constitutional Appears: Well - Head Exam Head Exam: ATRAUMATIC, NORMAL INSPECTION, NORMOCEPHALIC - Eye Exam Eye Exam: EOMI, Normal appearance, PERRL. absent: Conjunctival injection, Nystagmus, Periorbital swelling, Periorbital tenderness, Scleral icterus Pupil Exam: NORMAL ACCOMODATION, PERRL - ENT Exam ENT Exam: Mucous Membranes Moist, Normal Exam. absent: Mucous Membranes Dry, Normal External Ear Exam, Normal Oropharynx, TM's Normal Bilaterally - Neck Exam Neck Exam: Full ROM, Normal Inspection. absent: Lymphadenopathy, Meningismus, Tenderness, Thyromegaly - Respiratory Exam Respiratory Exam: Clear to Ausculation Bilateral, NORMAL BREATHING PATTERN. absent: Accessory Muscle Use, Chest Wall Tenderness, Decreased Breath Sounds, Prolonged Expiratory Phase, Rales, Rhonchi, Wheezes, Respiratory Distress, Stridor - Cardiovascular Exam Cardiovascular Exam: REGULAR RHYTHM, +S1, +S2, Murmur. absent: Bradycardia, Tachycardia, Clicks, Diastolic murmur, Gallop, Irregular Rhythm, JVD, RRR, Rubs , +S4 - GI/Abdominal Exam GI & Abdominal Exam: Soft, Normal Bowel Sounds. absent: Bruit, Distended, Firm , Guarding, Rigid, Tenderness, Diminished Bowel Sounds, Hernia, Hyperactive Bowel Sounds, Hypoactive Bowel Sounds, Organomegaly, Pulsatile Mass, Rebound, Mass - Rectal Exam Rectal Exam: Deferred - Extremities Exam Extremities Exam: Full ROM, Normal Capillary Refill, Normal Inspection. absent : Calf Tenderness, Joint Swelling, Pedal Edema, Tenderness - Back Exam Back Exam: NORMAL INSPECTION. absent: CVA tenderness (L), CVA tenderness (R), Full ROM, muscle spasm, paraspinal tenderness, rash noted, tenderness, vertebral tenderness - Neurological Exam Neurological Exam: Alert, Awake, CN II-XII Intact, Motor Sensory Deficit, Normal Gait, Oriented x3. absent: Abnormal Gait, Altered, Reflexes Normal - Psychiatric Exam Psychiatric exam: Normal Affect, Normal Mood. absent: Agitated, Anxious, Depressed, Flat Affect, Homicidal Ideation, Manic, Suicidal Ideation - Skin Skin Exam: Dry, Intact, Normal Color, Warm. absent: Abrasion, Cyanosis, Diaphoretic, Erythema, Mottled, Pallor, Pallor, Petechiae, Rash, Urticaria, Vesicles Assessment and Plan (1) Sinus bradycardia Status: Acute (2) Hx of deep venous thrombosis Status: Acute (3) Hx of superior vena cava filter placement Status: Acute (4) Elevated BP without diagnosis of hypertension Status: Acute (5) Ischemic stroke Status: Acute - Assessment and Plan (Free Text) Plan: sinus armida due to cva hayden reveals no evidence of pfo or asd.
[2017-09-24 05:25] LABS: PHOSPHATIDYLSERINE AB IGG <10 U/mL (<10); PHOSPHATIDYLSERINE AB IGM <25 U/mL (<25)
[2017-09-24 05:53] LABS: B2 GLYCOPROTEIN I AB(IGA) <9 SAU (<=20); B2 GLYCOPROTEIN I AB(IGG) <9 SGU (<=20); B2 GLYCOPROTEIN I AB(IGM) <9 SMU (<=20)
[2017-09-24 07:11] LABS: CARDIOLIPIN AB (IGA) <11 APL (<=11); CARDIOLIPIN AB (IGG) <14 GPL (<=14); CARDIOLIPIN AB (IGM) <12 MPL (<=12); PHOSPHATIDYLSERINE AB IGA <20 U/mL (<20)
[2017-09-24 07:54] VITALS: RESP 20
--- NOTE | 2017-09-24 09:03 | CP.PCM.PN ---
Subjective - Subjective Subjective: NO NEW FINDINGS Objective - Vital Signs/Intake and Output Vital Signs (last 24 hours): Temp Pulse Resp BP Pulse Ox 98.1 F 53 L 20 113/66 97 09/24/17 07:54 09/24/17 07:54 09/24/17 07:54 09/24/17 07:54 09/24/17 07:54 - Medications Medications: Current Medications Acetaminophen (Tylenol 325mg Tab) 650 mg PO Q4 PRN PRN Reason: headache Last Admin: 09/22/17 22:54 Dose: 650 mg Aspirin (Aspirin Chewable) 81 mg PO DAILY [facility] Last Admin: 09/24/17 08:57 Dose: 81 mg Atorvastatin Calcium (Lipitor) 40 mg PO DAILY@2200 [facility] Last Admin: 09/23/17 21:31 Dose: 40 mg Clopidogrel Bisulfate (Plavix) 75 mg PO DAILY [facility] Last Admin: 09/24/17 08:57 Dose: 75 mg - Labs Labs: 09/21/17 04:15 09/21/17 04:15 PT 10.9 Seconds (9.8-13.1) 09/18/17 20:30 INR 1.0 (0.9-1.2) 09/18/17 20:30 APTT 30.1 Seconds (25.6-37.1) 09/18/17 20:30 - Head Exam Head Exam: ATRAUMATIC, NORMAL INSPECTION, NORMOCEPHALIC - Eye Exam Eye Exam: EOMI, Normal appearance, PERRL Pupil Exam: NORMAL ACCOMODATION, PERRL - ENT Exam ENT Exam: Mucous Membranes Moist, Normal Exam - Neck Exam Neck Exam: Full ROM, Normal Inspection. absent: Lymphadenopathy - Respiratory Exam Respiratory Exam: Clear to Ausculation Bilateral, NORMAL BREATHING PATTERN - Cardiovascular Exam Cardiovascular Exam: REGULAR RHYTHM, +S1, +S2. absent: Murmur - GI/Abdominal Exam GI & Abdominal Exam: Soft, Normal Bowel Sounds. absent: Tenderness - Rectal Exam Rectal Exam: NORMAL INSPECTION - Exam Exam: Circumcision, NORMAL INSPECTION External exam: NORMAL EXTERNAL EXAM Speculum exam: NORMAL SPECULUM EXAM Bimanual exam: NORMAL BIMANUAL EXAM - Extremities Exam Extremities Exam: Full ROM, Normal Capillary Refill, Normal Inspection. absent : Joint Swelling, Pedal Edema - Back Exam Back Exam: NORMAL INSPECTION - Neurological Exam Neurological Exam: Alert, Awake, CN II-XII Intact, Normal Gait, Oriented x3 Additional comments: R SIDED HEMIPARESES - Psychiatric Exam Psychiatric exam: Normal Affect, Normal Mood - Skin Skin Exam: Dry, Intact, Normal Color, Warm Assessment and Plan - Assessment and Plan (Free Text) Assessment: CVA Plan: AWAIT TRANSFER TO ACUTE REHAB
--- NOTE | 2017-09-24 09:05 | CP.PCM.DIS ---
Provider - Provider Date of Admission: 09/18/17 21:21 Attending physician: Mckay Bhakta MD Time Spent in preparation of Discharge (in minutes): 30 Diagnosis - Discharge Diagnosis (1) Elevated BP without diagnosis of hypertension Status: Acute (2) Hx of deep venous thrombosis Status: Acute (3) Hx of superior vena cava filter placement Status: Acute (4) Ischemic stroke Status: Acute (5) Sinus bradycardia Status: Acute (6) Weakness of one side of body Status: Acute Hospital Course - Lab Results Lab Results: Most Recent Lab Values WBC 6.0 K/uL (4.8-10.8) 09/21/17 04:15 RBC 4.44 Mil/uL (4.40-5.90) 09/21/17 04:15 Hgb 13.7 g/dL (12.0-18.0) 09/21/17 04:15 Hct 40.0 % (35.0-51.0) 09/21/17 04:15 MCV 90.2 fl (80.0-94.0) 09/21/17 04:15 MCH 30.8 pg (27.0-31.0) 09/21/17 04:15 MCHC 34.2 g/dL (33.0-37.0) 09/21/17 04:15 RDW 13.5 % (11.5-14.5) 09/21/17 04:15 Plt Count 218 K/uL (130-400) 09/21/17 04:15 MPV 7.8 fl (7.2-11.7) 09/18/17 20:30 Neut % (Auto) 56.1 % (50.0-75.0) 09/18/17 20:30 Lymph % (Auto) 33.3 % (20.0-40.0) 09/18/17 20:30 [place] % (Auto) 7.9 % (0.0-10.0) 09/18/17 20:30 Eos % (Auto) 1.6 % (0.0-4.0) 09/18/17 20:30 Baso % (Auto) 1.1 % (0.0-2.0) 09/18/17 20:30 Neut # (Auto) 4.0 K/uL (1.8-7.0) 09/18/17 20:30 Lymph # (Auto) 2.4 K/uL (1.0-4.3) 09/18/17 20:30 [place] # (Auto) 0.6 K/uL (0.0-0.8) 09/18/17 20:30 Eos # (Auto) 0.1 K/uL (0.0-0.7) 09/18/17 20:30 Baso # (Auto) 0.1 K/uL (0.0-0.2) 09/18/17 20:30 ESR 10 mm/hr (0-15) 09/21/17 04:15 PT 10.9 Seconds (9.8-13.1) 09/18/17 20:30 INR 1.0 (0.9-1.2) 09/18/17 20:30 APTT 30.1 Seconds (25.6-37.1) 09/18/17 20:30 Lupus Anticoagulant see note 09/21/17 04:15 LA PTT Screen 39 sec (<=40) 09/21/17 04:15 dRVVT Mixing Study 40 sec (<=45) 09/21/17 04:15 dRVVT Mix Interpret Not indicated 09/21/17 04:15 Antithrombin III Activ 106 % activity (80-120) 09/21/17 04:15 Sodium 144 mmol/l (132-148) 09/21/17 04:15 Potassium 4.0 MMOL/L (3.6-5.0) 09/21/17 04:15 Chloride 105 mmol/L (98-107) 09/21/17 04:15 Carbon Dioxide 24 mmol/L (22-30) 09/21/17 04:15 Anion Gap 19 (10-20) 09/21/17 04:15 BUN 16 mg/dl (9-20) 09/21/17 04:15 Creatinine 0.8 mg/dl (0.8-1.5) 09/21/17 04:15 Est GFR ( Amer) > 60 09/21/17 04:15 Est GFR (Non-Af Amer) > 60 09/21/17 04:15 POC Glucose (mg/dL) 101 mg/dL (65-110) 09/20/17 10:59 Random Glucose 82 mg/dL (75-110) 09/21/17 04:15 Hemoglobin A1c 5.7 % (4.2-6.5) 09/18/17 20:30 Calcium 9.0 mg/dL (8.4-10.2) 09/21/17 04:15 Magnesium 2.2 MG/DL (1.6-2.3) 09/21/17 04:15 Total Bilirubin 0.5 mg/dl (0.2-1.3) 09/21/17 04:15 AST 30 U/L (17-59) 09/21/17 04:15 ALT 40 U/L (21-72) 09/21/17 04:15 Alkaline Phosphatase 46 U/L (38-126) 09/21/17 04:15 Troponin I < 0.0120 ng/mL (0.00-0.120) 09/19/17 16:38 C-Reactive Protein < 5.00 mg/L (0.0-9.9) 09/21/17 04:15 Total Protein 6.8 G/DL (6.3-8.2) 09/21/17 04:15 Albumin 3.7 g/dL (3.5-5.0) 09/21/17 04:15 Globulin 3.0 gm/dL (2.2-3.9) 09/21/17 04:15 Albumin/Globulin Ratio 1.2 (1.0-2.1) 09/21/17 04:15 Triglycerides 123 mg/DL (0-149) 09/19/17 05:37 Cholesterol 197 mg/dL (0-199) 09/19/17 05:37 LDL Cholesterol Direct 123 mg/dL (0-129) 09/19/17 05:37 HDL Cholesterol 37 MG/DL (30-70) 09/19/17 05:37 Homocysteine 12.3 umol/L ( <11.4) H 09/21/17 04:15 Free T4 0.94 ng/dL (0.78-2.19) 09/21/17 04:15 Total T3 1.01 nmol/L (1.49-2.60) L 09/21/17 04:15 TSH 3rd Generation 1.59 mIU/ML (0.46-4.68) 09/21/17 04:15 Urine Opiates Screen Negative (NEGATIVE) 09/20/17 20:38 Urine Methadone Screen Negative (NEGATIVE) 09/20/17 20:38 Ur Barbiturates Screen Negative (NEGATIVE) 09/20/17 20:38 Ur Phencyclidine Scrn Negative (NEGATIVE) 09/20/17 20:38 Ur Amphetamines Screen Negative (NEGATIVE) 09/20/17 20:38 U Benzodiazepines Scrn Negative (NEGATIVE) 09/20/17 20:38 U Oth Cocaine Metabols Negative (NEGATIVE) 09/20/17 20:38 U Cannabinoids Screen Negative (NEGATIVE) 09/20/17 20:38 Qbah-4-Xqjgrjfqjiqr Ab <9 MARSHALL (<=20) 09/21/17 10:02 Beta-2 GPI IgG Ab <9 SGU (<=20) 09/21/17 10:02 Beta-2 GPI IgM Ab <9 SMU (<=20) 09/21/17 10:02 Phosphatidylserine IgG <10 U/mL (<10) 09/21/17 10:02 Phosphatidylserine IgA <20 U/mL (<20) 09/21/17 10:02 Phosphatidylserine IgM <25 U/mL (<25) 09/21/17 10:02 Anti-Phospholipid Intrp see note 09/21/17 10:02 Anti-Cardiolipin IgG Ab <14 GPL (<=14) 09/21/17 10:02 Anti-Cardiolipin IgA Ab <11 APL (<=11) 09/21/17 10:02 Anti-Cardiolipin IgM Ab <12 MPL (<=12) 09/21/17 10:02 Lyme Disease IgG Ab (IFA) Negative (NEGATIVE) 09/21/17 04:15 Lyme Disease IgM Ab Negative (NEGATIVE) 09/21/17 04:15 Blood Type O NEGATIVE 09/18/17 20:30 Blood Type Confirm O NEGATIVE 09/19/17 18:29 Antibody Screen Negative 09/18/17 20:30 BBK History Checked No verified bt 09/18/17 20:30 - Hospital Course Hospital Course: r hemipareses slowly improving Discharge Exam - Head Exam Head Exam: ATRAUMATIC, NORMAL INSPECTION, NORMOCEPHALIC - Eye Exam Eye Exam: EOMI, Normal appearance, PERRL Pupil Exam: NORMAL ACCOMODATION, PERRL - GI/Abdominal Exam GI & Abdominal Exam: Normal Bowel Sounds - Rectal Exam Rectal Exam: NORMAL INSPECTION - Neurological Exam Neurological exam: Alert, CN II-XII Intact, Normal Gait, Oriented x3, Reflexes Normal Additional comments: r hemipareses - Psychiatric Exam Psychiatric exam: Normal Affect, Normal Mood - Skin Skin Exam: Dry, Intact, Normal Color, Warm Discharge Plan - Follow Up Plan Condition: FAIR Disposition: HOME/ ROUTINE Patient education suggested?: Yes Instructions: Stroke (DC) Additional Instructions: discharge to acute rehab Referrals: Abdullahi Thompson MD [Family Provider] -
[2017-09-24 11:48] VITALS: O2SAT 98
[2017-09-24 12:14] VITALS: BP 135/80; PULSE 61; TEMP 98.3
== END 2017-09-24 15:20 | DRG 14 ==
LOC: H.ER 19:30 → H.ERHOLD 21:21 → H.TEL 09-19 17:24
PROVIDERS: ADMIT Internal Medicine Pulmonary Disease; ATTEND Internal Medicine Pulmonary Disease
PROC: B246ZZ4 Ultrasonography of Right and Left Heart, Transesophageal (ICD-10-PCS; principal; 2017-09-23)
DX: I63.10 Cerebral infarction due to embolism of unspecified precerebral artery (principal); R29.810 Facial weakness; R47.01 Aphasia; R03.0 Elevated blood-pressure reading, without diagnosis of hypertension; Z91.14 Patient's other noncompliance with medication regimen; R00.1 Bradycardia, unspecified; F17.200 Nicotine dependence, unspecified, uncomplicated; Z86.718 Personal history of other venous thrombosis and embolism

== ENCOUNTER 2017-09-24 14:54 | Inpatient (IN) | payer MEDICAID ==
[2017-09-24 15:31] VITALS: BMI 33.9
[2017-09-24] MEDS: Enoxaparin 40 mg Syringe SC SCH (17:48)
[2017-09-25 06:50] LABS: HEMOGLOBIN 14.2 g/dL (12.0-18.0); MEAN CELL VOLUME 91.4 fl (80.0-94.0); MEAN CORPUSCULAR HEMOGLOBIN 30.6 pg (27.0-31.0); MEAN CORPUSCULAR HGB CONC 33.5 g/dL (33.0-37.0); RBC 4.63 Mil/uL (4.40-5.90); RED CELL DISTRIBUTION WIDTH 13.4 % (11.5-14.5); WHITE BLOOD COUNT 6.3 K/uL (4.8-10.8)
[2017-09-25 07:08] LABS: BLOOD UREA NITROGEN 16 mg/dl (9-20); CALCIUM 9.2 mg/dL (8.4-10.2); GFR AFRICAN-AMERICAN > 60; GFR NON-AFRICAN AMERICAN > 60
[2017-09-25] MEDS: Pantoprazole 40 mg EC Tab PO SCH (09:33)
[2017-09-25] MEDS: Enoxaparin 40 mg Syringe SC SCH (09:33)
--- NOTE | 2017-09-25 09:35 | HP ---
HISTORY OF PRESENT ILLNESS: Mr. Parker is a 32-year-old male who was admitted from the medical floor after he was originally admitted with acute cerebrovascular accident. He has a history of hypertension and has stopped taking his antihypertensives for 2 years prior to presentation and then he developed a right-sided hemiparesis and headaches. He was diagnosed to have lacunar infarct treated by both neurology and cardiology on the medical floor. Workup has been non-revealing. He also has a history of deep venous thrombosis of the left lower extremity and had an IVC filter placed years ago. FAMILY HISTORY: Non-revealing. SOCIAL HISTORY: Socially, he does not smoke or drink and lives at home with and children. REVIEW OF SYSTEMS: Essentially unremarkable. PHYSICAL EXAMINATION: GENERAL: The patient is alert and oriented, appears to be comfortable at present. VITAL SIGNS: Blood pressure of 134/70 with the pulse of 70, respiratory rate of 20. He is afebrile. O2 sat is 97% on room air. SKIN: Shows fair turgor. HEENT: Pupils are equal and reactive to light and accommodation. Mouth shows fair hygiene. NECK: JVP flat. LUNGS: Clear. HEART: Regular. No murmurs or gallop. ABDOMEN: Soft and nontender, no organomegaly. EXTREMITIES: Show no edema or cyanosis, but there is definite right-sided weakness of arm and leg. CENTRAL NERVOUS SYSTEM: Exam is grossly intact except for right-sided hemiparesis of right arm and right leg. LABORATORY DATA: Reviewed. IMPRESSION: Acute cerebrovascular accident, hypertension fairly controlled of medications, hyperlipidemia, history of deep venous thrombosis in the past, status post inferior vena cava filter placement, and history of bradycardia probably secondary to cerebrovascular accident, now in regular sinus rhythm. PLAN: Aggressive physical therapy and occupational therapy and rehab. We will continue therapy as ordered. Physiatry consult already ordered. We will hold antihypertensives for now and restart once clinically stable and if blood pressure rises. Mckay Bhakta MD
--- NOTE | 2017-09-25 12:09 | CP.PCM.CON ---
History of Present Illness - History of Present Illness History of Present Illness: Neurology Consultation Note: Mr. Parker is a 32-year-old man with a past medical history of hypertension, who was admitted for left basal ganglia acute ischemic stroke on 09/18/2017 and is currently in acute rehab, where I will be following him for post-stroke care. He states that his right hand strength has improved significantly and he feels that he is making good progress. Past Patient History - Past Social History Smoking Status: Former Smoker - CARDIAC Hx Hypertension: Yes - PULMONARY Hx Respiratory Disorders: No - NEUROLOGICAL Hx Neurological Disorder: No - HEENT Hx HEENT Problems: No - RENAL Hx Chronic Kidney Disease: No - ENDOCRINE/METABOLIC Hx Endocrine Disorders: No - HEMATOLOGICAL/ONCOLOGICAL Hx AIDS: No Hx Human Immunodeficiency Virus (HIV): No - INTEGUMENTARY Hx Dermatological Problems: No - MUSCULOSKELETAL/RHEUMATOLOGICAL Hx Falls: No - GENITOURINARY/GYNECOLOGICAL Hx Genitourinary Disorders: No - PSYCHIATRIC Hx Substance Use: No Other/Comment: smokes 3 cigarretes/day - SURGICAL HISTORY Other/Comment: s/p svc filter Meds Allergies/Adverse Reactions: Allergies Allergy/AdvReac Type Severity Reaction Status Date / Time No Known Allergies Allergy Verified 09/18/17 19:55 - Medications Medications: Current Medications Aspirin (Aspirin Chewable) 81 mg PO DAILY [facility] Last Admin: 09/25/17 09:32 Dose: 81 mg Atorvastatin Calcium (Lipitor) 40 mg PO HS [facility] Last Admin: 09/24/17 21:15 Dose: 40 mg Clopidogrel Bisulfate (Plavix) 75 mg PO DAILY [facility] Last Admin: 09/25/17 09:33 Dose: 75 mg Enoxaparin Sodium (Lovenox) 40 mg SC DAILY [facility] PRN Reason: Protocol Last Admin: 09/25/17 09:33 Dose: 40 mg Pantoprazole Sodium (Protonix Ec Tab) 40 mg PO DAILY [facility] Last Admin: 09/25/17 09:33 Dose: 40 mg Physical Exam - Constitutional Appears: Well - Head Exam Head Exam: ATRAUMATIC, NORMAL INSPECTION, NORMOCEPHALIC - Eye Exam Eye Exam: EOMI, Normal appearance, PERRL - ENT Exam ENT Exam: Mucous Membranes Moist, Normal Exam - Cardiovascular Exam Cardiovascular Exam: REGULAR RHYTHM - GI/Abdominal Exam GI & Abdominal Exam: Normal Bowel Sounds, Soft. absent: Tenderness - Neurological Exam Neurological exam: Alert, CN II-XII Intact, Normal Gait, Oriented x3, Reflexes Normal Additional comments: Fine motor deficits in right hand, pronator drift in right arm, right facial droop noted. NIHSS = 3 Results - Vital Signs Recent Vital Signs: Last Vital Signs Temp 97.0 F L 09/25/17 08:11 Pulse 58 L 09/25/17 08:11 Resp 20 09/25/17 08:11 BP 124/79 09/25/17 08:11 Pulse Ox 99 09/25/17 08:11 - Labs Result Diagrams: 09/25/17 05:20 09/25/17 05:20 Labs: Laboratory Results - last 24 hr 09/25/17 09/25/17 05:20 05:20 WBC 6.3 RBC 4.63 Hgb 14.2 Hct 42.3 MCV 91.4 MCH 30.6 MCHC 33.5 RDW 13.4 Plt Count 214 Sodium 145 Potassium 4.2 Chloride 103 Carbon Dioxide 26 Anion Gap 20 BUN 16 Creatinine 0.8 Est GFR ( Amer) > 60 Est GFR (Non-Af Amer) > 60 Random Glucose 91 Calcium 9.2 Assessment & Plan (1) Ischemic stroke Assessment and Plan: Continue aspirin 81 mg daily and plavix 75 mg daily for secondary stroke prevention as well as controlling risk factors for stroke with lipitor 40 mg daily. Discussed smoking cessation. Will add amlodipine 5 mg PO daily since he was hypertensive. Continue PT/OT plan. Thank you. Status: Acute
--- NOTE | 2017-09-25 17:01 | CP.PCM.CON ---
History of Present Illness - History of Present Illness History of Present Illness: Dr Fall PMR consultation on Gordy Parker, born 1985 who has been admitted to [facility] for acute inpatient rehabilitation following left CVA with right eye droop and right hand weakness following a left CVA. COIL TIER independent and was working. Right hand dominant Review of Systems - Constitutional Constitutional: absent: Anorexia, Chills - EENT Ears: absent: Decreased Hearing, Ear Discharge Nose/Mouth/Throat: absent: Nasal Congestion - Cardiovascular Cardiovascular: absent: Chest Pain, Claudication - Respiratory Respiratory: absent: Dyspnea - Gastrointestinal Gastrointestinal: absent: Abdominal Pain, Constipation - Musculoskeletal Musculoskeletal: absent: Arthralgias, Back Pain - Integumentary Integumentary: absent: Bleeding Lesions - Neurological Neurological: absent: Abnormal Hearing, Abnormal Movements, Headaches, Lack of Coordination - Psychiatric Psychiatric: absent: Anxiety Past Patient History - Past Social History Smoking Status: Former Smoker Alcohol: Occasional Drugs: Denies Home Situation {Lives}: With Family - CARDIAC Hx Hypertension: Yes - PULMONARY Hx Respiratory Disorders: No - NEUROLOGICAL Hx Neurological Disorder: No - HEENT Hx HEENT Problems: No - RENAL Hx Chronic Kidney Disease: No - ENDOCRINE/METABOLIC Hx Endocrine Disorders: No - HEMATOLOGICAL/ONCOLOGICAL Hx AIDS: No Hx Human Immunodeficiency Virus (HIV): No - INTEGUMENTARY Hx Dermatological Problems: No - MUSCULOSKELETAL/RHEUMATOLOGICAL Hx Falls: No - GENITOURINARY/GYNECOLOGICAL Hx Genitourinary Disorders: No - PSYCHIATRIC Hx Substance Use: No Other/Comment: smokes 3 cigarretes/day - SURGICAL HISTORY Other/Comment: s/p svc filter Meds Allergies/Adverse Reactions: Allergies Allergy/AdvReac Type Severity Reaction Status Date / Time No Known Allergies Allergy Verified 09/18/17 19:55 - Medications Medications: Current Medications Amlodipine Besylate (Norvasc) 5 mg PO DAILY [facility] Last Admin: 09/25/17 16:51 Dose: 5 mg Aspirin (Aspirin Chewable) 81 mg PO DAILY [facility] Last Admin: 09/25/17 09:32 Dose: 81 mg Atorvastatin Calcium (Lipitor) 40 mg PO HS [facility] Last Admin: 09/24/17 21:15 Dose: 40 mg Clopidogrel Bisulfate (Plavix) 75 mg PO DAILY [facility] Last Admin: 09/25/17 09:33 Dose: 75 mg Enoxaparin Sodium (Lovenox) 40 mg SC DAILY [facility] PRN Reason: Protocol Last Admin: 09/25/17 09:33 Dose: 40 mg Pantoprazole Sodium (Protonix Ec Tab) 40 mg PO DAILY [facility] Last Admin: 09/25/17 09:33 Dose: 40 mg Physical Exam - Constitutional Appears: Non-toxic, No Acute Distress - Head Exam Head Exam: ATRAUMATIC, NORMAL INSPECTION, NORMOCEPHALIC - Eye Exam Eye Exam: absent: Normal appearance (right eye droop) - ENT Exam ENT Exam: Mucous Membranes Moist - Respiratory Exam Respiratory Exam: NORMAL BREATHING PATTERN - Cardiovascular Exam Cardiovascular Exam: REGULAR RHYTHM - GI/Abdominal Exam GI & Abdominal Exam: Normal Bowel Sounds - Extremities Exam Extremities exam: Positive for: normal inspection. Negative for: calf tenderness - Neurological Exam Neurological exam: Alert, Oriented x3 - Psychiatric Exam Psychiatric exam: Normal Affect, Normal Mood - Skin Skin Exam: Warm Results - Vital Signs Recent Vital Signs: Last Vital Signs Temp 97.0 F L 09/25/17 08:11 Pulse 63 09/25/17 16:51 Resp 20 09/25/17 08:11 BP 138/57 L 09/25/17 16:51 Pulse Ox 99 09/25/17 08:11 - Labs Result Diagrams: 09/25/17 05:20 09/25/17 05:20 Labs: Laboratory Results - last 24 hr 09/25/17 09/25/17 05:20 05:20 WBC 6.3 RBC 4.63 Hgb 14.2 Hct 42.3 MCV 91.4 MCH 30.6 MCHC 33.5 RDW 13.4 Plt Count 214 Sodium 145 Potassium 4.2 Chloride 103 Carbon Dioxide 26 Anion Gap 20 BUN 16 Creatinine 0.8 Est GFR ( Amer) > 60 Est GFR (Non-Af Amer) > 60 Random Glucose 91 Calcium 9.2 Assessment & Plan - Assessment and Plan (Free Text) Assessment: PT/OT to continue to help increase functional independence Team conference for d/c planning Pain: controlled Vascular: no evidence of DVT GI: No evidence of constipation or diarrhea Patient is an excellent acute rehabilitation candidate and will have focused PT , OT and recreational therapy to help facilitate a safe and appropriate d/c plan impairment code: 01.2
--- NOTE | 2017-09-25 17:23 | PCM.OPOC ---
Physiatry Overall Plan of Care - Overall Plan of Care Estimated Length of Stay in Weeks: 1 Rehab Impairment: Mobility, Gait, Balance, Coordination Etiologic Diagnosis: Cerebrovascular Accident Rehab/Medical Prognosis: Good - Anticipated Interventions Physical Therapy:: Yes Occupational Therapy:: Yes Speech Therapy:: No Recreational Therapy:: Yes - Therapy Goals Bed Mobility: Independent Ambulation: Independent Functional Positional Changes:: Independent - Discharge Plan Discharge Destination: Home
[2017-09-26] MEDS: Pantoprazole 40 mg EC Tab PO SCH (08:18)
[2017-09-26] MEDS: Enoxaparin 40 mg Syringe SC SCH (08:19)
--- NOTE | 2017-09-26 11:53 | CP.PCM.PN ---
Subjective - Date & Time of Evaluation Date of Evaluation: 09/26/17 Time of Evaluation: 11:52 - Subjective Subjective: R HEMIPARESES IMPROVING Objective - Vital Signs/Intake and Output Vital Signs (last 24 hours): Temp Pulse Resp BP Pulse Ox 97.7 F 58 L 22 140/90 98 09/26/17 07:35 09/26/17 07:35 09/26/17 07:35 09/26/17 08:18 09/26/17 07:35 - Medications Medications: Current Medications Amlodipine Besylate (Norvasc) 5 mg PO DAILY [facility] Last Admin: 09/26/17 08:18 Dose: 5 mg Aspirin (Aspirin Chewable) 81 mg PO DAILY [facility] Last Admin: 09/26/17 08:19 Dose: 81 mg Atorvastatin Calcium (Lipitor) 40 mg PO HS [facility] Last Admin: 09/25/17 21:15 Dose: 40 mg Clopidogrel Bisulfate (Plavix) 75 mg PO DAILY [facility] Last Admin: 09/26/17 08:18 Dose: 75 mg Enoxaparin Sodium (Lovenox) 40 mg SC DAILY [facility] PRN Reason: Protocol Last Admin: 09/26/17 08:19 Dose: 40 mg Lactulose (Enulose) 20 gm PO ONCE ONE Stop: 09/26/17 11:51 Pantoprazole Sodium (Protonix Ec Tab) 40 mg PO DAILY [facility] Last Admin: 09/26/17 08:18 Dose: 40 mg - Labs Labs: 09/25/17 05:20 09/25/17 05:20 - Constitutional Appears: No Acute Distress - Head Exam Head Exam: ATRAUMATIC, NORMAL INSPECTION, NORMOCEPHALIC - Eye Exam Eye Exam: EOMI, Normal appearance, PERRL Pupil Exam: NORMAL ACCOMODATION, PERRL - ENT Exam ENT Exam: Mucous Membranes Moist, Normal Exam - Neck Exam Neck Exam: Full ROM, Normal Inspection. absent: Lymphadenopathy - Respiratory Exam Respiratory Exam: Clear to Ausculation Bilateral, NORMAL BREATHING PATTERN - Cardiovascular Exam Cardiovascular Exam: REGULAR RHYTHM, +S1, +S2. absent: Murmur - GI/Abdominal Exam GI & Abdominal Exam: Soft, Normal Bowel Sounds. absent: Tenderness - Rectal Exam Rectal Exam: NORMAL INSPECTION - Extremities Exam Extremities Exam: Full ROM, Normal Capillary Refill, Normal Inspection. absent : Joint Swelling, Pedal Edema - Back Exam Back Exam: NORMAL INSPECTION - Neurological Exam Neurological Exam: Alert, Awake, CN II-XII Intact, Normal Gait, Oriented x3 Additional comments: R HEMIPARESES IMPROVING - Psychiatric Exam Psychiatric exam: Normal Affect, Normal Mood - Skin Skin Exam: Dry, Intact, Normal Color, Warm Assessment and Plan - Assessment and Plan (Free Text) Assessment: ACUTE CVA HTN Plan: CONTINUE CURRENT RX
--- NOTE | 2017-09-26 14:41 | CP.PCM.PN ---
Subjective - Date & Time of Evaluation Date of Evaluation: 09/26/17 Time of Evaluation: 14:40 - Subjective Subjective: Patient seen in the room motivated and high level functioning denies pain no constipation continue current care and hopefully will be ready to d/c mid next week Objective - Vital Signs/Intake and Output Vital Signs (last 24 hours): Temp Pulse Resp BP Pulse Ox 97.7 F 58 L 22 140/90 98 09/26/17 07:35 09/26/17 07:35 09/26/17 07:35 09/26/17 08:18 09/26/17 07:35 - Medications Medications: Current Medications Amlodipine Besylate (Norvasc) 5 mg PO DAILY [facility] Last Admin: 09/26/17 08:18 Dose: 5 mg Aspirin (Aspirin Chewable) 81 mg PO DAILY [facility] Last Admin: 09/26/17 08:19 Dose: 81 mg Atorvastatin Calcium (Lipitor) 40 mg PO HS [facility] Last Admin: 09/25/17 21:15 Dose: 40 mg Clopidogrel Bisulfate (Plavix) 75 mg PO DAILY [facility] Last Admin: 09/26/17 08:18 Dose: 75 mg Enoxaparin Sodium (Lovenox) 40 mg SC DAILY [facility] PRN Reason: Protocol Last Admin: 09/26/17 08:19 Dose: 40 mg Pantoprazole Sodium (Protonix Ec Tab) 40 mg PO DAILY [facility] Last Admin: 09/26/17 08:18 Dose: 40 mg - Labs Labs: 09/25/17 05:20 09/25/17 05:20
[2017-09-27] MEDS: Pantoprazole 40 mg EC Tab PO SCH (08:09)
[2017-09-27] MEDS: Enoxaparin 40 mg Syringe SC SCH (08:10)
--- NOTE | 2017-09-27 09:26 | CP.PCM.PN ---
Subjective - Date & Time of Evaluation Date of Evaluation: 09/27/17 Time of Evaluation: 09:27 - Subjective Subjective: CLINICALLY IMPROVING R ARM/LEG WEAKNESS IMPROVING STILL C/O CONSTIPATION Objective - Vital Signs/Intake and Output Vital Signs (last 24 hours): Temp Pulse Resp BP Pulse Ox 97.5 F L 52 L 20 131/78 98 09/27/17 08:07 09/27/17 08:07 09/27/17 08:07 09/27/17 08:09 09/27/17 08:07 - Medications Medications: Current Medications Amlodipine Besylate (Norvasc) 5 mg PO DAILY [facility] Last Admin: 09/27/17 08:09 Dose: 5 mg Aspirin (Aspirin Chewable) 81 mg PO DAILY [facility] Last Admin: 09/27/17 08:09 Dose: 81 mg Atorvastatin Calcium (Lipitor) 40 mg PO HS [facility] Last Admin: 09/26/17 21:42 Dose: 40 mg Clopidogrel Bisulfate (Plavix) 75 mg PO DAILY [facility] Last Admin: 09/27/17 08:09 Dose: 75 mg Enoxaparin Sodium (Lovenox) 40 mg SC DAILY [facility] PRN Reason: Protocol Last Admin: 09/27/17 08:10 Dose: 40 mg Lactulose (Enulose) 20 gm PO DAILY PRN PRN Reason: Constipation Pantoprazole Sodium (Protonix Ec Tab) 40 mg PO DAILY [facility] Last Admin: 09/27/17 08:09 Dose: 40 mg - Labs Labs: 09/25/17 05:20 09/25/17 05:20 - Constitutional Appears: No Acute Distress - Head Exam Head Exam: ATRAUMATIC, NORMAL INSPECTION, NORMOCEPHALIC - Eye Exam Eye Exam: EOMI, Normal appearance, PERRL Pupil Exam: NORMAL ACCOMODATION, PERRL - ENT Exam ENT Exam: Mucous Membranes Moist, Normal Exam - Neck Exam Neck Exam: Full ROM, Normal Inspection. absent: Lymphadenopathy - Respiratory Exam Respiratory Exam: Clear to Ausculation Bilateral, NORMAL BREATHING PATTERN - Cardiovascular Exam Cardiovascular Exam: REGULAR RHYTHM, +S1, +S2. absent: Murmur - GI/Abdominal Exam GI & Abdominal Exam: Soft, Normal Bowel Sounds. absent: Tenderness - Rectal Exam Rectal Exam: NORMAL INSPECTION - Extremities Exam Extremities Exam: Full ROM, Normal Capillary Refill, Normal Inspection. absent : Joint Swelling, Pedal Edema - Back Exam Back Exam: NORMAL INSPECTION - Neurological Exam Neurological Exam: Alert, Awake, CN II-XII Intact, Normal Gait, Oriented x3 Additional comments: R HEMIPARESES IMPROVING - Psychiatric Exam Psychiatric exam: Normal Affect, Normal Mood - Skin Skin Exam: Dry, Intact, Normal Color, Warm Assessment and Plan - Assessment and Plan (Free Text) Assessment: ACUTE CVA HTN BRADYCARDIA Plan: CONTINUE RX ORDERED LABS IN AM
[2017-09-27] MEDS ORDERED: Enoxaparin 40 mg Syringe SC SCH (09:30)
[2017-09-28 06:28] LABS: HEMOGLOBIN 14.1 g/dL (12.0-18.0); MEAN CELL VOLUME 90.8 fl (80.0-94.0); MEAN CORPUSCULAR HGB CONC 34.2 g/dL (33.0-37.0); RBC 4.54 Mil/uL (4.40-5.90); RED CELL DISTRIBUTION WIDTH 13.4 % (11.5-14.5); WHITE BLOOD COUNT 6.4 K/uL (4.8-10.8)
[2017-09-28 06:36] LABS: BLOOD UREA NITROGEN 14 mg/dl (9-20); CALCIUM 9.1 mg/dL (8.4-10.2); GFR AFRICAN-AMERICAN > 60; GFR NON-AFRICAN AMERICAN > 60; HDL CHOLESTEROL 35 MG/DL (30-70)
[2017-09-28 06:47] LABS: LDL CHOLESTEROL 86 mg/dL (0-129)
[2017-09-28] MEDS: Enoxaparin 40 mg Syringe SC SCH (08:44)
[2017-09-28] MEDS: Pantoprazole 40 mg EC Tab PO SCH (08:46)
--- NOTE | 2017-09-28 09:40 | CP.PCM.PN ---
Subjective - Date & Time of Evaluation Date of Evaluation: 09/28/17 Time of Evaluation: 09:41 - Subjective Subjective: NO APPARENT DISTRESS R HEMIPARESES GRADUALLY IMPROVING Objective - Vital Signs/Intake and Output Vital Signs (last 24 hours): Temp Pulse Resp BP Pulse Ox 97.9 F 84 20 133/77 98 09/28/17 08:37 09/28/17 08:45 09/28/17 08:37 09/28/17 08:45 09/28/17 08:37 - Medications Medications: Current Medications Acetaminophen (Tylenol 325mg Tab) 650 mg PO Q4 PRN PRN Reason: .Pain (scale 3 - 10) Last Admin: 09/27/17 20:52 Dose: 650 mg Amlodipine Besylate (Norvasc) 5 mg PO DAILY [facility] Last Admin: 09/28/17 08:45 Dose: 5 mg Aspirin (Aspirin Chewable) 81 mg PO DAILY [facility] Last Admin: 09/28/17 08:44 Dose: 81 mg Atorvastatin Calcium (Lipitor) 40 mg PO HS [facility] Last Admin: 09/27/17 21:03 Dose: 40 mg Clopidogrel Bisulfate (Plavix) 75 mg PO DAILY [facility] Last Admin: 09/28/17 08:46 Dose: 75 mg Enoxaparin Sodium (Lovenox) 40 mg SC DAILY [facility] PRN Reason: Protocol Last Admin: 09/28/17 08:44 Dose: 40 mg Lactulose (Enulose) 20 gm PO DAILY [facility] Pantoprazole Sodium (Protonix Ec Tab) 40 mg PO DAILY [facility] Last Admin: 09/28/17 08:46 Dose: 40 mg - Labs Labs: 09/28/17 05:55 09/28/17 05:55 - Constitutional Appears: No Acute Distress - Head Exam Head Exam: ATRAUMATIC, NORMAL INSPECTION, NORMOCEPHALIC - Eye Exam Eye Exam: EOMI, Normal appearance, PERRL Pupil Exam: NORMAL ACCOMODATION, PERRL - ENT Exam ENT Exam: Mucous Membranes Moist, Normal Exam - Neck Exam Neck Exam: Full ROM, Normal Inspection. absent: Lymphadenopathy - Respiratory Exam Respiratory Exam: Clear to Ausculation Bilateral, NORMAL BREATHING PATTERN - Cardiovascular Exam Cardiovascular Exam: REGULAR RHYTHM, +S1, +S2. absent: Murmur - GI/Abdominal Exam GI & Abdominal Exam: Soft, Normal Bowel Sounds. absent: Tenderness - Rectal Exam Rectal Exam: NORMAL INSPECTION - Extremities Exam Extremities Exam: Full ROM, Normal Capillary Refill, Normal Inspection. absent : Joint Swelling, Pedal Edema - Back Exam Back Exam: NORMAL INSPECTION - Neurological Exam Neurological Exam: Alert, Awake, CN II-XII Intact, Normal Gait, Oriented x3 Additional comments: R HEMIPARESES IMPROVING - Psychiatric Exam Psychiatric exam: Normal Affect, Normal Mood - Skin Skin Exam: Dry, Intact, Normal Color, Warm Assessment and Plan - Assessment and Plan (Free Text) Assessment: ACUTE CVA HTN HX OF OLD DVT BRADYCARDIA DUE TO CVA Plan: CONTINUE CURRENT RX
--- NOTE | 2017-09-28 11:47 | CP.PCM.PN ---
Subjective - Date & Time of Evaluation Date of Evaluation: 09/28/17 Time of Evaluation: 11:45 - Subjective Subjective: Mr. Parker was seen and examined at the bedside. He is alert, oriented in all spheres. He denies any headache, dizziness, lightheadedness, nausea, or vomiting. He is able to follow simple commands with right side weakness. There was no untoward events overnight. Objective - Vital Signs/Intake and Output Vital Signs (last 24 hours): Temp Pulse Resp BP Pulse Ox 97.9 F 84 20 133/77 98 09/28/17 08:37 09/28/17 08:45 09/28/17 08:37 09/28/17 08:45 09/28/17 08:37 - Medications Medications: Current Medications Acetaminophen (Tylenol 325mg Tab) 650 mg PO Q4 PRN PRN Reason: .Pain (scale 3 - 10) Last Admin: 09/27/17 20:52 Dose: 650 mg Amlodipine Besylate (Norvasc) 5 mg PO DAILY [facility] Last Admin: 09/28/17 08:45 Dose: 5 mg Aspirin (Aspirin Chewable) 81 mg PO DAILY [facility] Last Admin: 09/28/17 08:44 Dose: 81 mg Atorvastatin Calcium (Lipitor) 40 mg PO HS [facility] Last Admin: 09/27/17 21:03 Dose: 40 mg Clopidogrel Bisulfate (Plavix) 75 mg PO DAILY [facility] Last Admin: 09/28/17 08:46 Dose: 75 mg Enoxaparin Sodium (Lovenox) 40 mg SC DAILY [facility] PRN Reason: Protocol Last Admin: 09/28/17 08:44 Dose: 40 mg Lactulose (Enulose) 20 gm PO DAILY [facility] Pantoprazole Sodium (Protonix Ec Tab) 40 mg PO DAILY [facility] Last Admin: 09/28/17 08:46 Dose: 40 mg - Labs Labs: 09/28/17 05:55 09/28/17 05:55 - Constitutional Appears: No Acute Distress - Head Exam Head Exam: NORMAL INSPECTION - Neurological Exam Neurological Exam: Alert, Awake Neuro motor strength exam: Left Upper Extremity: 5, Right Upper Extremity: 4, Left Lower Extremity: 5, Right Lower Extremity: 4 Additional comments: He is alert, oriented, follows simple commands. Sensation is intact. Assessment and Plan (1) Ischemic stroke Assessment & Plan: Case discussed with Dr. Korya, continue all current medical, physical, occupational therapies. Recommend lifestyle change. Status: Acute
[2017-09-29] MEDS: Enoxaparin 40 mg Syringe SC SCH (08:14)
[2017-09-29] MEDS: Pantoprazole 40 mg EC Tab PO SCH (08:15)
--- NOTE | 2017-09-29 08:45 | CP.PCM.PN ---
Subjective - Date & Time of Evaluation Date of Evaluation: 09/29/17 Time of Evaluation: 08:45 - Subjective Subjective: continues to improve no apparent distress Objective - Vital Signs/Intake and Output Vital Signs (last 24 hours): Temp Pulse Resp BP Pulse Ox 97.9 F 66 20 132/77 99 09/28/17 20:00 09/29/17 08:15 09/28/17 20:00 09/29/17 08:15 09/28/17 20:00 - Medications Medications: Current Medications Acetaminophen (Tylenol 325mg Tab) 650 mg PO Q4 PRN PRN Reason: .Pain (scale 3 - 10) Last Admin: 09/27/17 20:52 Dose: 650 mg Amlodipine Besylate (Norvasc) 5 mg PO DAILY [facility] Last Admin: 09/29/17 08:15 Dose: 5 mg Aspirin (Aspirin Chewable) 81 mg PO DAILY [facility] Last Admin: 09/29/17 08:16 Dose: 81 mg Atorvastatin Calcium (Lipitor) 40 mg PO HS [facility] Last Admin: 09/28/17 21:11 Dose: 40 mg Clopidogrel Bisulfate (Plavix) 75 mg PO DAILY [facility] Last Admin: 09/29/17 08:16 Dose: 75 mg Enoxaparin Sodium (Lovenox) 40 mg SC DAILY [facility] PRN Reason: Protocol Last Admin: 09/29/17 08:14 Dose: 40 mg Lactulose (Enulose) 20 gm PO DAILY [facility] Last Admin: 09/29/17 08:17 Dose: 20 gm Pantoprazole Sodium (Protonix Ec Tab) 40 mg PO DAILY [facility] Last Admin: 09/29/17 08:15 Dose: 40 mg - Labs Labs: 09/28/17 05:55 09/28/17 05:55 - Constitutional Appears: No Acute Distress - Head Exam Head Exam: ATRAUMATIC, NORMAL INSPECTION, NORMOCEPHALIC - Eye Exam Eye Exam: EOMI, Normal appearance, PERRL Pupil Exam: NORMAL ACCOMODATION, PERRL - ENT Exam ENT Exam: Mucous Membranes Moist, Normal Exam - Neck Exam Neck Exam: Full ROM, Normal Inspection. absent: Lymphadenopathy - Respiratory Exam Respiratory Exam: Clear to Ausculation Bilateral, NORMAL BREATHING PATTERN - Cardiovascular Exam Cardiovascular Exam: REGULAR RHYTHM, +S1, +S2. absent: Murmur - GI/Abdominal Exam GI & Abdominal Exam: Soft, Normal Bowel Sounds. absent: Tenderness - Rectal Exam Rectal Exam: NORMAL INSPECTION - Extremities Exam Extremities Exam: Full ROM, Normal Capillary Refill, Normal Inspection. absent : Joint Swelling, Pedal Edema - Back Exam Back Exam: NORMAL INSPECTION - Neurological Exam Neurological Exam: Alert, Awake, CN II-XII Intact, Normal Gait, Oriented x3 Additional comments: r arm and leg weakness improving no other neuro deficits - Psychiatric Exam Psychiatric exam: Normal Affect, Normal Mood - Skin Skin Exam: Dry, Intact, Normal Color, Warm Assessment and Plan - Assessment and Plan (Free Text) Assessment: s/p cva htn-controlled hx of dvt--s/p ivc filter placement Plan: continue current rx
--- NOTE | 2017-09-29 13:25 | PSY.TMCNF ---
Nursing - Vital Signs Vital Signs (Last 8 hours): Vital Signs 09/29/17 09/29/17 08:15 08:47 Temperature 98.5 F Pulse Rate 66 68 Respiratory 20 Rate Blood Pressure 132/77 132/77 O2 Sat by Pulse 100 Oximetry Pain: 0 - Medications/Other Issues Comment: Pt at low nutritional risk. no goals. Follow-up due on 10/04/2017 - Bladder Management Bladder Pattern: Normal Voiding Method: Toilet - Bowel Management Bowel Pattern: Normal - Goals/Time Frame Comments: Customer Success Specialist met with patient in room. Patient was AAOx3 and agreeable to assessment. Patient was in his room watching TV and expressed feeling tired since he was just admitted. Patient identified his leisure interests as watching TV and spending time outdoors with his daughters. Patient stated he has two children who keep him busy with activities and going to the park. Patient currently lives at home with his and children. Patient is currently unemployed and did not want to speak much about work. Patient remained engaged in conversation and agreed to attend groups as they are held on the unit. Physical Therapy - Bed Mobility Bed Mobility: Supervision, Verbal Cues Comment: bed mob CS - Transfers Wheelchair to Mat: Supervision, Verbal Cues, Contact Guard Sit to Stand: Supervision, Verbal Cues, Contact Guard Comment: CG/CS for t/f, occ instability during task - Ambulation Level of Assistance: Supervision, Verbal Cues Distance (ft.): 200 Assistive Devices: N/A - Stair Negotiation Stairs: Level of Assistance: Verbal Cues, Contact Guard Number of Stairs: 12 Stairs: Assistive Devices: Right Handrail - Standing Balance Static Stand: Supervision Dynamic Stand: Contact Guard Assist - Pain Pain (assessed during therapy session): 0 Management Techniques: Medication - Insight/Carryover Insight/Carryover: Good - Patient/Family Education Comment: CVA recovery topics, posture, activity pacing, balance, rehab goals, POC, safety, fxnl mob - Assessment/Plan Assessment: pt is 32 yo male presented to [facility] for comprehensive rehab program s /p actue CVA resulting in inabilty to perform adl routine safley and effectively . patient able to complete transfers, mobility and self care with supervision . however- Pt still demonstrates weakness on RUE/RLE, with occasional CG required during mobility to the right if pt feels fatigued. Requires furthur training for coordination and dexterity for RUE. Reccommned cont skilled OT services 5-6x/week as per POC. - Goals Timeframe: 1 week Goals: Independent with transfers, mobility , self care (modified ) - Provider Therapist: brian License Number: [id number] Occupational Therapy - Arousal/Attention/Orientation Patient Orientation: Person, Place, Time, Appropriate to Age, Appropriate to Situation - ADL/IADL Self Feeding: Supervision, Set-up Help Grooming: Supervision, Set-up Help Dressing-Upper Extremity: Supervision, Set-up Help Dressing-Lower Extremity: Supervision, Set-up Help - Sitting Balance Static Sitting: Supervision Dynamic Sitting: Requires supervision - Transfers Wheelchair to Bed Transfers: Supervision, Verbal Cues Toilet Transfers: Supervision, Verbal Cues, Contact Guard - Upper Extremity Status Right Upper Extremity Comment: WFL Left Upper Extremity Comment: WFL - Pain Pain (assessed during therapy session): 0 Alleviating Techniques: Medication - Insight/Carryover Insight/Carryover: Good - Patient/Family Education Comment: CVA recovery topics, posture, activity pacing, balance, rehab goals, POC, safety, fxnl mob - Assessment/Plan Assessment: pt is 32 yo male presented to [facility] for comprehensive rehab program s /p actue CVA resulting in inabilty to perform adl routine safley and effectively . patient able to complete transfers, mobility and self care with supervision . however- Pt still demonstrates weakness on RUE/RLE, with occasional CG required during mobility to the right if pt feels fatigued. Requires furthur training for coordination and dexterity for RUE. Reccommned cont skilled OT services 5-6x/week as per POC. - Goals Timeframe: 1 week Goals: Independent with transfers, mobility , self care (modified ) - Provider Therapist: Zaira Tomas OTR/Kaushik License Number: [id number] Speech Therapy - Plan Assessment: pt is 32 yo male presented to [facility] for comprehensive rehab program s /p actue CVA resulting in inabilty to perform adl routine safley and effectively . patient able to complete transfers, mobility and self care with supervision . however- Pt still demonstrates weakness on RUE/RLE, with occasional CG required during mobility to the right if pt feels fatigued. Requires furthur training for coordination and dexterity for RUE. Reccommned cont skilled OT services 5-6x/week as per POC. Recreational Therapy - Participation Participation: Participates in Individual and/or Group Sessions, Monitors His/ Her Own Leisure Time - Attendance Attendance: 3-5 times per week - Activities Leisure Activities: Television - Socialization Level of Socialization: Initiates/interacts freely with care givers and peer - Diversional Time Diversional Time: television - Assessment Assessment/Plan: pt is 32 yo male presented to [facility] for comprehensive rehab program s/p actue CVA resulting in inabilty to perform adl routine safley and effectively . patient able to complete transfers, mobility and self care with supervision . however- Pt still demonstrates weakness on RUE/RLE, with occasional CG required during mobility to the right if pt feels fatigued. Requires furthur training for coordination and dexterity for RUE. Reccommned cont skilled OT services 5-6x/week as per POC. - Provider Therapist: Louise Mcgrath, [employer] #[id number] Nutrition - Current Diet Current Diet/ Supplement/ Feedings: Heart healthy - Appetite Percent Meal Consumed: 75-100% - Assessment/Goals/Time Frame Assessment/Goals/Time Frame: Pt at low nutritional risk. no goals. Follow-up due on 10/04/2017 - Provider Provider: Charu Mcintosh RD Case Management - Discharge Plan Discharge Plan: Home with significant other/family Rehabilitation Plan - Treatment Plan Treatment Plan: Physical Therapy, Occupational Therapy, Dietary, Patient/Family Education - Discharge Plan Estimated Date of Discharge: 10/01/17 Discharge to: Home
--- NOTE | 2017-09-29 14:01 | CP.PCM.PN ---
Subjective - Date & Time of Evaluation Date of Evaluation: 09/29/17 Time of Evaluation: 14:00 - Subjective Subjective: Patient seen in the room doing very well set d/c for 10/01/17 discussed department of vocational rehab on discharge denies pain continue current care Objective - Vital Signs/Intake and Output Vital Signs (last 24 hours): Temp Pulse Resp BP Pulse Ox 98.5 F 68 20 132/77 100 09/29/17 08:47 09/29/17 08:47 09/29/17 08:47 09/29/17 08:47 09/29/17 08:47 - Medications Medications: Current Medications Acetaminophen (Tylenol 325mg Tab) 650 mg PO Q4 PRN PRN Reason: .Pain (scale 3 - 10) Last Admin: 09/27/17 20:52 Dose: 650 mg Amlodipine Besylate (Norvasc) 5 mg PO DAILY [facility] Last Admin: 09/29/17 08:15 Dose: 5 mg Aspirin (Aspirin Chewable) 81 mg PO DAILY [facility] Last Admin: 09/29/17 08:16 Dose: 81 mg Atorvastatin Calcium (Lipitor) 40 mg PO HS [facility] Last Admin: 09/28/17 21:11 Dose: 40 mg Clopidogrel Bisulfate (Plavix) 75 mg PO DAILY [facility] Last Admin: 09/29/17 08:16 Dose: 75 mg Enoxaparin Sodium (Lovenox) 40 mg SC DAILY [facility] PRN Reason: Protocol Last Admin: 09/29/17 08:14 Dose: 40 mg Lactulose (Enulose) 20 gm PO DAILY [facility] Last Admin: 09/29/17 08:17 Dose: 20 gm Pantoprazole Sodium (Protonix Ec Tab) 40 mg PO DAILY [facility] Last Admin: 09/29/17 08:15 Dose: 40 mg - Labs Labs: 09/28/17 05:55 09/28/17 05:55
[2017-09-30 08:18] VITALS: RESP 20
[2017-09-30] MEDS: Enoxaparin 40 mg Syringe SC SCH (08:18)
[2017-09-30] MEDS: Pantoprazole 40 mg EC Tab PO SCH (08:21)
--- NOTE | 2017-09-30 10:10 | CP.PCM.PN ---
Subjective - Date & Time of Evaluation Date of Evaluation: 09/30/17 Time of Evaluation: 10:09 - Subjective Subjective: FEELS BETTER NO APPARENT DISTRESS Objective - Vital Signs/Intake and Output Vital Signs (last 24 hours): Temp Pulse Resp BP Pulse Ox 98.2 F 58 L 20 127/81 98 09/30/17 08:18 09/30/17 08:19 09/30/17 08:18 09/30/17 08:19 09/30/17 08:18 - Medications Medications: Current Medications Acetaminophen (Tylenol 325mg Tab) 650 mg PO Q4 PRN PRN Reason: .Pain (scale 3 - 10) Last Admin: 09/27/17 20:52 Dose: 650 mg Amlodipine Besylate (Norvasc) 5 mg PO DAILY [facility] Last Admin: 09/30/17 08:19 Dose: 5 mg Aspirin (Aspirin Chewable) 81 mg PO DAILY [facility] Last Admin: 09/30/17 08:18 Dose: 81 mg Atorvastatin Calcium (Lipitor) 40 mg PO HS [facility] Last Admin: 09/29/17 21:42 Dose: 40 mg Clopidogrel Bisulfate (Plavix) 75 mg PO DAILY [facility] Last Admin: 09/30/17 08:20 Dose: 75 mg Enoxaparin Sodium (Lovenox) 40 mg SC DAILY [facility] PRN Reason: Protocol Lactulose (Enulose) 20 gm PO DAILY [facility] Last Admin: 09/30/17 08:18 Dose: 20 gm Pantoprazole Sodium (Protonix Ec Tab) 40 mg PO DAILY [facility] Last Admin: 09/30/17 08:21 Dose: 40 mg - Labs Labs: 09/28/17 05:55 09/28/17 05:55 - Constitutional Appears: No Acute Distress - Head Exam Head Exam: ATRAUMATIC, NORMAL INSPECTION, NORMOCEPHALIC - Eye Exam Eye Exam: EOMI, Normal appearance, PERRL Pupil Exam: NORMAL ACCOMODATION, PERRL - ENT Exam ENT Exam: Mucous Membranes Moist, Normal Exam - Neck Exam Neck Exam: Full ROM, Normal Inspection. absent: Lymphadenopathy - Respiratory Exam Respiratory Exam: Clear to Ausculation Bilateral, NORMAL BREATHING PATTERN - Cardiovascular Exam Cardiovascular Exam: REGULAR RHYTHM, +S1, +S2. absent: Murmur - GI/Abdominal Exam GI & Abdominal Exam: Soft, Normal Bowel Sounds. absent: Tenderness - Rectal Exam Rectal Exam: NORMAL INSPECTION - Exam Exam: NORMAL INSPECTION - Extremities Exam Extremities Exam: Full ROM, Normal Capillary Refill, Normal Inspection. absent : Joint Swelling, Pedal Edema - Back Exam Back Exam: NORMAL INSPECTION - Neurological Exam Neurological Exam: Alert, Awake, CN II-XII Intact, Normal Gait, Oriented x3 - Psychiatric Exam Psychiatric exam: Normal Affect, Normal Mood - Skin Skin Exam: Dry, Intact, Normal Color, Warm Assessment and Plan - Assessment and Plan (Free Text) Assessment: S/P CVA HTN Plan: CONTINUE SAME RX
--- NOTE | 2017-09-30 10:30 | CP.PCM.PN ---
Subjective - Date & Time of Evaluation Date of Evaluation: 09/30/17 Time of Evaluation: 10:30 - Subjective Subjective: Mr. Parker was seen and examined at the bedside. He is alert, oriented in all spheres. He denies any headache, dizziness, lightheadedness, nausea, or vomiting. He is able to follow simple commands with right side weakness. He remains with mild right eye ptosis.There was no untoward events overnight. Objective - Vital Signs/Intake and Output Vital Signs (last 24 hours): Temp Pulse Resp BP Pulse Ox 98.2 F 58 L 20 127/81 98 09/30/17 08:18 09/30/17 08:19 09/30/17 08:18 09/30/17 08:19 09/30/17 08:18 - Medications Medications: Current Medications Acetaminophen (Tylenol 325mg Tab) 650 mg PO Q4 PRN PRN Reason: .Pain (scale 3 - 10) Last Admin: 09/27/17 20:52 Dose: 650 mg Amlodipine Besylate (Norvasc) 5 mg PO DAILY [facility] Last Admin: 09/30/17 08:19 Dose: 5 mg Aspirin (Aspirin Chewable) 81 mg PO DAILY [facility] Last Admin: 09/30/17 08:18 Dose: 81 mg Atorvastatin Calcium (Lipitor) 40 mg PO HS [facility] Last Admin: 09/29/17 21:42 Dose: 40 mg Clopidogrel Bisulfate (Plavix) 75 mg PO DAILY [facility] Last Admin: 09/30/17 08:20 Dose: 75 mg Enoxaparin Sodium (Lovenox) 40 mg SC DAILY [facility] PRN Reason: Protocol Lactulose (Enulose) 20 gm PO DAILY [facility] Last Admin: 09/30/17 08:18 Dose: 20 gm Pantoprazole Sodium (Protonix Ec Tab) 40 mg PO DAILY [facility] Last Admin: 09/30/17 08:21 Dose: 40 mg - Labs Labs: 09/28/17 05:55 09/28/17 05:55 - Constitutional Appears: No Acute Distress - Head Exam Head Exam: NORMAL INSPECTION - Neurological Exam Neurological Exam: Alert, Awake, Oriented x3 Neuro motor strength exam: Left Upper Extremity: 5, Right Upper Extremity: 5, Left Lower Extremity: 5, Right Lower Extremity: 5 Additional comments: Neurological unchanged from previous examination. Assessment and Plan (1) Ischemic stroke Assessment & Plan: Case discussed with Dr. Campbell, continue all current medical, physical, occupational therapies. Recommend to follow up with an outpatient neurologist upon discharge. If the patient would like to follow up with Dr. Thompson/ Adrian at [address] [place] [address] [address]. [place] Tel. # [phone]. Status: Acute
[2017-10-01 07:03] LABS: HEMOGLOBIN 13.7 g/dL (12.0-18.0); MEAN CELL VOLUME 91.5 fl (80.0-94.0); MEAN CORPUSCULAR HEMOGLOBIN 30.7 pg (27.0-31.0); MEAN CORPUSCULAR HGB CONC 33.5 g/dL (33.0-37.0); RBC 4.48 Mil/uL (4.40-5.90); RED CELL DISTRIBUTION WIDTH 13.1 % (11.5-14.5); WHITE BLOOD COUNT 6.6 K/uL (4.8-10.8)
[2017-10-01 07:51] LABS: BLOOD UREA NITROGEN 14 mg/dl (9-20); CALCIUM 9.2 mg/dL (8.4-10.2); GFR AFRICAN-AMERICAN > 60; GFR NON-AFRICAN AMERICAN > 60
[2017-10-01] MEDS: Pantoprazole 40 mg EC Tab PO SCH (08:57)
[2017-10-01 08:58] VITALS: BP 135/87; PULSE 85
[2017-10-01] MEDS ORDERED: Enoxaparin 40 mg Syringe SC SCH (09:00)
--- NOTE | 2017-10-01 09:23 | CP.PCM.DIS ---
Provider - Provider Date of Admission: 09/24/17 15:31 Attending physician: Mckay Kim MD Time Spent in preparation of Discharge (in minutes): 30 Diagnosis - Discharge Diagnosis (1) Elevated BP without diagnosis of hypertension Status: Acute (2) Hx of deep venous thrombosis Status: Acute (3) Hx of superior vena cava filter placement Status: Acute (4) Ischemic stroke Status: Acute (5) Sinus bradycardia Status: Acute (6) Weakness of one side of body Status: Acute Hospital Course - Lab Results Lab Results: Most Recent Lab Values WBC 6.6 K/uL (4.8-10.8) 10/01/17 06:00 RBC 4.48 Mil/uL (4.40-5.90) 10/01/17 06:00 Hgb 13.7 g/dL (12.0-18.0) 10/01/17 06:00 Hct 41.0 % (35.0-51.0) 10/01/17 06:00 MCV 91.5 fl (80.0-94.0) 10/01/17 06:00 MCH 30.7 pg (27.0-31.0) 10/01/17 06:00 MCHC 33.5 g/dL (33.0-37.0) 10/01/17 06:00 RDW 13.1 % (11.5-14.5) 10/01/17 06:00 Plt Count 236 K/uL (130-400) 10/01/17 06:00 Sodium 146 mmol/l (132-148) 10/01/17 06:00 Potassium 4.0 MMOL/L (3.6-5.0) 10/01/17 06:00 Chloride 104 mmol/L (98-107) 10/01/17 06:00 Carbon Dioxide 29 mmol/L (22-30) 10/01/17 06:00 Anion Gap 17 (10-20) 10/01/17 06:00 BUN 14 mg/dl (9-20) 10/01/17 06:00 Creatinine 0.8 mg/dl (0.8-1.5) 10/01/17 06:00 Est GFR ( Amer) > 60 10/01/17 06:00 Est GFR (Non-Af Amer) > 60 10/01/17 06:00 Random Glucose 88 mg/dL (75-110) 10/01/17 06:00 Calcium 9.2 mg/dL (8.4-10.2) 10/01/17 06:00 Triglycerides 100 mg/DL (0-149) 09/28/17 05:55 Cholesterol 140 mg/dL (0-199) 09/28/17 05:55 LDL Cholesterol Direct 86 mg/dL (0-129) 09/28/17 05:55 HDL Cholesterol 35 MG/DL (30-70) 09/28/17 05:55 - Hospital Course Hospital Course: CLINICALLY IMPROVED Discharge Exam - Head Exam Head Exam: NORMAL INSPECTION - Eye Exam Eye Exam: EOMI, Normal appearance, PERRL Pupil Exam: NORMAL ACCOMODATION, PERRL - GI/Abdominal Exam GI & Abdominal Exam: Normal Bowel Sounds - Rectal Exam Rectal Exam: NORMAL INSPECTION - Neurological Exam Neurological exam: Alert, CN II-XII Intact, Normal Gait, Oriented x3, Reflexes Normal - Psychiatric Exam Psychiatric exam: Normal Affect, Normal Mood - Skin Skin Exam: Dry, Intact, Normal Color, Warm Discharge Plan - Follow Up Plan Condition: GOOD Disposition: HOME/ ROUTINE Patient education suggested?: Yes Instructions: Heart Healthy Diet, Stroke (DC), Amlodipine, Aspirin, Atorvastatin, Clopidogrel, Pantoprazole Additional Instructions: FOLLOW UP WITH DR KIM IN 1 WEEK
[2017-10-01 11:22] VITALS: TEMP 98; O2SAT 100
== END 2017-10-01 13:38 | disposition home or self-care (01) | DRG 12 ==
PROVIDERS: ADMIT Internal Medicine Pulmonary Disease; ATTEND Internal Medicine Pulmonary Disease
PROC: F07Z9FZ Gait Training/Functional Ambulation Treatment using Assistive, Adaptive, Supportive or Protective Equipment (ICD-10-PCS; principal; 2017-09-24)
PROC: F08Z4FZ Home Management Treatment using Assistive, Adaptive, Supportive or Protective Equipment (ICD-10-PCS; 2017-09-24)
PROC: F07L6FZ Therapeutic Exercise Treatment of Musculoskeletal System - Lower Back / Lower Extremity using Assistive, Adaptive, Supportive or Protective Equipment (ICD-10-PCS; 2017-09-24)
PROC: F07J6FZ Therapeutic Exercise Treatment of Musculoskeletal System - Head and Neck using Assistive, Adaptive, Supportive or Protective Equipment (ICD-10-PCS; 2017-09-25)
DX: I69.351 Hemiplegia and hemiparesis following cerebral infarction affecting right dominant side (principal); I69.392 Facial weakness following cerebral infarction; I10 Essential (primary) hypertension; R00.1 Bradycardia, unspecified; E78.5 Hyperlipidemia, unspecified; K59.00 Constipation, unspecified; F17.200 Nicotine dependence, unspecified, uncomplicated; Z86.718 Personal history of other venous thrombosis and embolism